=== PATIENT | female | born 1935 | race Caucasian/White ===

== ENCOUNTER 2018-11-18 14:17 | Emergency (ER) | payer OTHER ==
[~2018-11-18] VITALS: Ht 167.6 cm; Wt 50.8 kg
[2018-11-18 16:20] VITALS: BP 145/71
== END 2018-11-18 16:20 | disposition home or self-care (01) ==
LOC: ER 14:17
DX: R04.0 Epistaxis (principal)

== ENCOUNTER 2018-12-30 16:55 | Emergency (ER) | payer OTHER ==
[~2018-12-30] VITALS: Ht 162.6 cm; Wt 65.8 kg
[2018-12-30 16:57] VITALS: BP 154/75
== END 2018-12-30 17:35 | disposition home or self-care (01) ==
LOC: ER 16:55
DX: R04.0 Epistaxis (principal); I10 Essential (primary) hypertension; E11.9 Type 2 diabetes mellitus without complications; E78.5 Hyperlipidemia, unspecified; F03.90 Unspecified dementia, unspecified severity, without behavioral disturbance, psychotic disturbance, mood disturbance, and anxiety; Z95.1 Presence of aortocoronary bypass graft; Z86.2 Personal history of diseases of the blood and blood-forming organs and certain disorders involving the immune mechanism

== ENCOUNTER 2019-02-10 15:03 | Emergency (ER) | payer OTHER ==
[~2019-02-10] VITALS: Ht 162.6 cm; Wt 64.0 kg
[2019-02-10 15:14] VITALS: BP 141/60
[2019-02-10] MEDS ORDERED: SIMVASTATIN40 MG PO (15:16)
[2019-02-10] MEDS ORDERED: ARICEPT10 MG PO (15:17)
[2019-02-10] MEDS ORDERED: GABAPENTIN 100100 MG PO (15:17)
[2019-02-10] MEDS ORDERED: NATEGLINIDE120 MG PO (15:17)
[2019-02-10] MEDS ORDERED: LISINOPRIL40 MG PO (15:17)
[2019-02-10] MEDS ORDERED: METFORMIN HCL1000 MG PO (15:18)
== END 2019-02-10 16:06 | disposition home or self-care (01) ==
LOC: ER 15:03
DX: H11.31 Conjunctival hemorrhage, right eye (principal); I10 Essential (primary) hypertension; E11.9 Type 2 diabetes mellitus without complications; F03.90 Unspecified dementia, unspecified severity, without behavioral disturbance, psychotic disturbance, mood disturbance, and anxiety; E78.5 Hyperlipidemia, unspecified; Z95.1 Presence of aortocoronary bypass graft; Z86.2 Personal history of diseases of the blood and blood-forming organs and certain disorders involving the immune mechanism

== ENCOUNTER 2020-07-15 08:57 | Inpatient (IN) | payer OTHER ==
[~2020-07-15] VITALS: Ht 160 cm; Wt 67.8 kg
[2020-07-15] VITALS (7 sets, daily range): BP systolic 97–180; BP diastolic 49–159
[~2020-07-15 08:57] MED LIST: ARICEPT10 MG PO; GABAPENTIN 100100 MG PO; LISINOPRIL40 MG PO; METFORMIN HCL1000 MG PO; NATEGLINIDE120 MG PO; SIMVASTATIN40 MG PO
[2020-07-15 10:17] LABS: ABSOLUTE NEUTROPHILS 13.6 thou/uL (1.4-8.2); BASOPHILS 0.2 % (0.0-2.0); EOSINOPHILS 0.9 % (0.0-3.0); HEMATOCRIT 35.3 % (37.0-47.0); HEMOGLOBIN 12.2 gm/dL (12.0-15.0); LYMPHOCYTES 3.4 % (24.0-44.0); MCHC 34.5 g/dL (28.0-37.0); MCV 89.7 fL (80.0-100.0); MONOCYTES 7.5 % (1.0-8.0); PLATELET COUNT 360 thou/uL (150-400); RBC 3.93 mil/uL (4.20-5.00); RDW 14.6 % (10.5-14.5); WBC 15.5 thou/uL (4.0-11.0)
[2020-07-15 10:28] LABS: ANION GAP 10 mmol/L (7-16); BUN 55 mg/dL (7-18); CALCIUM 9.5 mg/dL (8.5-10.1); CHLORIDE 98 mmol/L (98-107); CO2 25 mmol/L (21-32); CREATININE 3.4 mg/dL (0.6-1.0); GLUCOSE 95 mg/dL (74-106); POTASSIUM 4.3 mmol/L (3.5-5.1); SODIUM 133 mmol/L (136-145)
[2020-07-15 10:38] LABS: URINE BLOOD NEGATIVE (Negative); URINE CLARITY CLEAR; URINE COLOR YELLOW; URINE GLUCOSE-RANDOM* NEGATIVE (Negative); URINE KETONES TRACE (Negative); URINE LEUKOCYTES-REFLEX NEGATIVE (Negative); URINE NITRITE-REFLEX NEGATIVE (Negative); URINE PROTEIN (DIPSTICK) NEGATIVE (Negative); URINE SPECIFIC GRAVITY >= 1.030 (1.005-1.035); URINE UROBILINOGEN 0.2 E.U./dl (0.2-1.0)
[2020-07-15 10:38] LABS: ALBUMIN 3.5 g/dL (3.4-5.0); DIRECT BILIRUBIN < 0.1 mg/dL (<0.1-0.2); SGOT 20 U/L (15-37); SGPT 14 U/L (14-59); TOTAL BILIRUBIN 0.4 mg/dL (0.2-1.0); TOTAL PROTEIN 7.3 g/dL (6.4-8.2); TROPONIN-I <0.06 ng/mL (<0.06)
--- NOTE | 2020-07-15 10:42 | NUR ---
ATTEMPTED TO CONTACT PATIENT RESPONSIBLE DEMOCRAT (DEBORAH KHLOE [phone]) TO NOTIFY THAT PATIENT IS CURRENTLY ADMITTED INTO THE ED, NO ANSWER, LEFT MESSAGE FOR CALL BACK.
[2020-07-15 10:51] LABS: ICTOTEST (BILI CONFIRMATORY) Negative (Negative); URINE BILIRUBIN NEGATIVE (Negative)
[2020-07-15] MEDS ORDERED: NEURONTIN100 MG PO (10:55)
[2020-07-15 16:08] LABS: FOLIC ACID 17.4 ng/mL (8.6-58.9)
--- NOTE | 2020-07-15 18:01 | NUR ---
RN ADMITTED THE PT AND DID THE ADMISSION TO THE BEST OF RN'S ABILITITES GIVEN THAT PT HAD ALTERED MENTAL STATUS. UPON ARRIVAL PT WAS ESCORTED BY ONE DIRECTOR OF SECURITIES AND REAL ESTATE ON A GURNEY AND PT WAS TRANSFERRED FROM [place] TO BED WITH TWO PEOPLE ASSIST. VS ARE STABLE. SAW THE PT PLAN OF CARE IS TO HYDRATE VIA IV FLUID AND ABX TREATMENT. PT WAS ORIENTED TO SELF AND TIME AND PLACE BUT DISOREINETED TO SITUATION WELL A POOR HISTORIAN. RN TALKED TO THE DAUGHTER ASSIGNED AMANDA THE AUTHORIZED CONTACT. TOLD HER THAT SHE WILL BE THE ONLY OUTLET FOR INFOMRATION FOR HIPAA REASONS AND SHE WILL BE TRANSMITTING THE INFORMATION. PT IS SLEEPING FOR MAJORITY OF THE SHIFT. PT WANTED TO GET UP BUT FELL ASLEEP. RN CHECKED THE PT AND SHE WAS CLEAN AND DRY. BOTTOM WAS RED BUT BLANCHABLE, Z GUARD WAS PLACED. CUONG KRAMER RN HAD VERIFIED SKIN CHECK WITH THIS RN. RN SIGNING OFF
--- NOTE | 2020-07-15 22:48 | NUR ---
PT INITIALLY RESTLESS IN BED, WANTING TO LEAVE HER ROOM. ONCE PT WAS REORIENTED TO THE TIME OF NIGHT, PT RETURNED TO RESTING. IVF INTACT. PT TO WEAK TO STAND FOR BSC EVEN WITH TWO STAFF, USED BED ROSARIO. PT IS INCONTINENT OF URINE WELL. PALE SKIN TONE, LUNGS WITH WHEEZES. PTS DAUGHTER GIVEN UPDATE. 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 BED ALARM ON.
--- NOTE | 2020-07-16 01:29 | NUR ---
PT DENIES BEING INCONTINENT, BUT HAS BEEN 3 TIMES. PT DENIES BEING [place], BUT CONTINUES TO ASK STAFF TO REPEAT THEMSELVES, AND THE YELLS LOUDLY I AM NOT [place] I CAN YELL. 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
[2020-07-16 04:17] VITALS: BP 126/66
[2020-07-16 05:23] LABS: ABSOLUTE NEUTROPHILS 8.1 thou/uL (1.4-8.2); BASOPHILS 0.3 % (0.0-2.0); HEMATOCRIT 30.2 % (37.0-47.0); LYMPHOCYTES 3.9 % (24.0-44.0); MCH 30.4 pg (26.0-34.0); MCHC 33.6 g/dL (28.0-37.0); MCV 90.6 fL (80.0-100.0); MONOCYTES 3.5 % (1.0-8.0); PLATELET COUNT 324 thou/uL (150-400); POLYS 92.3 % (36.0-66.0); RBC 3.33 mil/uL (4.20-5.00); WBC 8.8 thou/uL (4.0-11.0)
[2020-07-16 05:30] LABS: CALCIUM 8.6 mg/dL (8.5-10.1); MAGNESIUM 1.6 mg/dL (1.8-2.4); POTASSIUM 4.9 mmol/L (3.5-5.1)
[2020-07-16 05:32] LABS: HEMOGLOBIN 10.1 gm/dL (12.0-15.0)
[2020-07-16 05:57] LABS: CREATININE 1.9 mg/dL (0.6-1.0)
[2020-07-16 07:07] VITALS: BP 126/63
[2020-07-16 09:35] VITALS: BP 131/67
--- NOTE | 2020-07-16 09:39 | NUR ---
assessment completed. report given to adrian olmedo. pt belongings packed and sent down with pt to room 455
--- NOTE | 2020-07-16 15:01 | NUR ---
ASSUMED PT CARE UPON TRANSFER TO 4W THIS AM. PT VSS, A&OX1, WITH CONFUSION. PT HAS NO COMPLAINTS OF PAIN. CALLS APPROPRIATELY WHEN NEEDED. PATIENT CAN BE CONTINENT WITH INCONTINENT SPURTS. FALL PRECAUTIONS IN PLACE. HAS A CONGESTED COUGH. SKIN TEAR ON LEFT FOREARM, PICTURE TAKEN AND DRESSING PUT ON. IV PATENT, FLUIDS INFUSING. HYDRATION ENCOURAGED.
--- NOTE | 2020-07-16 15:27 | NUR ---
PT ADMITTED RELATED TO PNEUMONIA, DEHYDRATION, AND FALLS. CM REVIEWED CHART AND SPOKE WITH CARE TEAM. CM MET WITH PT AND DTR BONNIE CHAGO AT BEDSIDE THIS DAY. PT WAS ALERT TO SELF. PT AND DTR INDICATED THAT PT RESIDES IN ASSISTED LIVING AT [facility]. 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 THEY INDICATED THAT PT HAD BEEN REVIEVING PT, OT, AND ST AT FACILITY DISP[employer] BUT COULDN'T RECALL PROVIDER. PT'S DTR AMANDA WORKS AT [facility] IN TRANSPORT. THEY HAVE INDICATED HOPE THAT PT COULD RETURN TO HER AL WITH RESUMPTION OF HH SERVICES BUT ARE OPEN TO SHORT TERM SKILLED STAY IF NEEDED. PT ON IVF AND IV STEROIDS. CM TO FOLLOW INDICATED WITH DC PLANNING.
[2020-07-16 15:45] VITALS: BP 124/70
[2020-07-16 15:49] VITALS: BP 157/64
[2020-07-16 19:39] VITALS: BP 150/70
--- NOTE | 2020-07-17 04:17 | NUR ---
VSS-AFEBRILE. CONFUSED AND IMPULSIVE OVERNIGHT, HIGH FALL RISK. ORIENTED TO SELF ONLY. DIFFICULT TO REORIENT, CAN BE AGGRESSIVE AT TIMES. OOB MTO BSC WITH ASSIST X 2 AND GAIT BELT. ALL FALL PRECAUTIONS IN PLACE. REMAINED CONTINENT THIS SHIFT.
[2020-07-17 05:37] LABS: HEMATOCRIT 32.9 % (37.0-47.0); HEMOGLOBIN 10.8 gm/dL (12.0-15.0); MCH 29.6 pg (26.0-34.0); MCHC 32.8 g/dL (28.0-37.0); MCV 90.5 fL (80.0-100.0); RBC 3.63 mil/uL (4.20-5.00); WBC 17.8 thou/uL (4.0-11.0)
[2020-07-17 06:10] LABS: CALCIUM 9.5 mg/dL (8.5-10.1); CREATININE 1.5 mg/dL (0.6-1.0); PHOSPHORUS 2.8 mg/dL (2.5-4.9)
[2020-07-17 06:15] LABS: POTASSIUM 5.1 mmol/L (3.5-5.1)
[2020-07-17 07:30] VITALS: BP 177/83
--- NOTE | 2020-07-17 15:57 | NUR ---
PT CONTINUES ON IV ABX AND IV STEROIDS. CM FOLLOWING REGARDING DC PLANNING. EITHER BACK TO [facility] WITH HH OR SNF AT [facility].
[2020-07-17 16:00] VITALS: BP 155/70
--- NOTE | 2020-07-17 17:05 | NUR ---
ASSUMED PATIENT AFTER REPORT. ASSESSMENT CHARTED. MEDS ADMINSTERED PER EMAR. VSS. PATIENT IS ALERT TO SELF BUT VERY CONFUSED AND DISORIENTED BUT NOT COMBATIVE. DTR AT BEDSIDE. PROVIDER CONTACTED FOR QUESTIONS; GABAPENTIN WAS RESUMED FOR BETTER REST TONIGHT. NEW IV INSERTED BY VAT ON R HAND. PROTECTIVE WRAP PLACED; NO SIGNS OF DISCOMFORT FROM PATIENT. APPETITE IS POOR; PATIENT REQUIRES ENCOURAGEMENT AND CUING. PATIENT ABLE TO TURN SELF BUT HAS BEEN GETTING UP TO BSC WITH X1 ASSIST. STILL ON IV ABX. PATIENT DENIES PAIN AND VOICES NO FURTHER NEEDS. FALL PRECAUTIONS IN PLACE. 4 BEDRAILS UP PER FAMILY REQUEST. WILL CONTINUE TO MONITOR AND FOLLOW PLAN OF CARE.
[2020-07-17 20:06] VITALS: BP 154/88
[2020-07-17 20:36] VITALS: BP 140/72
--- NOTE | 2020-07-18 04:11 | NUR ---
Pt. rested quietly during the night when checked on during frequent rounds. She is very confused, but cooperative. Bed alarm is on.
[2020-07-18 05:34] LABS: HEMATOCRIT 31.5 % (37.0-47.0); HEMOGLOBIN 10.4 gm/dL (12.0-15.0); MCH 30.2 pg (26.0-34.0); MCHC 33.1 g/dL (28.0-37.0); MCV 91.2 fL (80.0-100.0); RBC 3.45 mil/uL (4.20-5.00); WBC 11.7 thou/uL (4.0-11.0)
[2020-07-18 05:42] LABS: CREATININE 1.3 mg/dL (0.6-1.0); MAGNESIUM 1.7 mg/dL (1.8-2.4)
[2020-07-18 05:55] LABS: POTASSIUM 3.9 mmol/L (3.5-5.1)
[2020-07-18 07:35] VITALS: BP 119/62
[2020-07-18 07:38] VITALS: BP 150/85
--- NOTE | 2020-07-18 16:07 | NUR ---
ASSUMED CARE OF PATIENT AT SHIFT CHANGE. ASSESSMENT CHARTED. MEDS ADMINISTERED PER EMAR. PATIENT IS ALERT TO SELF BUT REMAINS CONFUSED; EASIER TO ORIENT THIS DAY. PT WORKED W THIS PATIENT. PATIENT REMIANS X1 ASSIST. RECIEVED IV ABX THIS AM AND MAGNESIUM ORDERED. VOICED PAIN ON R POSTERIOR THIGH; TYLENOL ADMINISTERED. FAMILY REQUESTED FOR OR TUESDAY D/C. PATIENT SEEMS MUCH LESS ANXIOUS THIS SHIFT. SITTING IN CHAIR; GOOD APPETITE. DTR AT BEDSIDE. DENIES NO NEEDS AT THIS TIME. FALL PRECAUTIONS REMAIN IN PLACE. PATIENT CONTINUES TO MAKE PROGRESS AND IS BENEFITING FROM THERAPIES. WILL CONTINUE TO MONITOR AND FOLLOW PLAN OF CARE.
[2020-07-18 16:10] VITALS: BP 101/63
--- NOTE | 2020-07-18 16:13 | NUR ---
IT IS ANTICIPATED THAT PT WILL BE MEDICALLY STABLE TO DC TO [facility] TOMORROW Tuesday07/19/20. FAX ORDERS TO . CHART COPY WILL NEED TO MADE. CALL REPORT TO . CONTACT PT'S DTR AMANDA SHE WORKS FOR [email or web address] AT . ADMISSIONS CELL SHOULD THERE BE ANY ISSUSES .
[2020-07-18 19:46] VITALS: BP 132/56
--- NOTE | 2020-07-19 04:01 | NUR ---
Pt. rested quietly at intervals during the night when checked on during frequent rounds. She offers no c/o pain. Pt. is alert with confusion. Up to the bedside comode with assistance of one and gait belt. Bed alarm is on.
[2020-07-19 04:49] LABS: HEMATOCRIT 31.4 % (37.0-47.0); HEMOGLOBIN 10.3 gm/dL (12.0-15.0); MCH 29.6 pg (26.0-34.0); MCHC 32.8 g/dL (28.0-37.0); MCV 90.2 fL (80.0-100.0); RBC 3.48 mil/uL (4.20-5.00); RDW 15.1 % (10.5-14.5); WBC 12.4 thou/uL (4.0-11.0)
[2020-07-19 05:03] LABS: CREATININE 1.2 mg/dL (0.6-1.0); MAGNESIUM 1.8 mg/dL (1.8-2.4); POTASSIUM 4.1 mmol/L (3.5-5.1)
[2020-07-19 08:29] VITALS: BP 137/77
--- NOTE | 2020-07-19 11:18 | NUR ---
Received awake on bed. Due medications given as prescribed, able to swallow meds w/o difficulty. Alert to herself only, re-oriented from time to time. On MS, not on telemetry; no complains and signs of chest pain, crushing sensation and heaviness. On room air. On mechanically altered diet- tolerating well; assisted and encouraged in eating and drinking; no nausea, no vomiting and no abdominal pain noted. On blood sugar monitoring, taken and recorded accordingly; with sliding scale insulin ordered- given as prescribed. With SL at R hand; on IV antibiotics. With skin tear at L FA- dressing in place. With on and off incontinence, able to use bedside commode- with standby assist, gait belt and walker; Falls bundle in place. Checked frequently and changed as needed. No complains and signs of pain made during assessment. To continue monitoring patient.
[2020-07-19 16:53] VITALS: BP 123/66
[2020-07-19 20:12] VITALS: BP 135/865
--- NOTE | 2020-07-20 01:00 | NUR ---
ASSUMED CARE OF PT AT 1900. PT IS A/O X1 AND IS PLEASANT AND COOPERATIVE. C/O COUGH. LUNGS SOUND COARSE AND WHEEZY. FAIR COUGH EFFORT BUT IS ABLE TO EXPEL SPUDEM. VSS. FALL PRECAUTIONS ARE IN PLACE, CALL LIGHT IS WITHIN REACH.
[2020-07-20 03:23] VITALS: BP 133/66
[2020-07-20 08:05] VITALS: BP 137/77
[2020-07-20 10:25] LABS: CALCIUM 8.8 mg/dL (8.5-10.1); CREATININE 1.1 mg/dL (0.6-1.0); MAGNESIUM 1.7 mg/dL (1.8-2.4); POTASSIUM 3.9 mmol/L (3.5-5.1)
[2020-07-20 11:08] LABS: HEMATOCRIT 31.4 % (37.0-47.0); HEMOGLOBIN 10.4 gm/dL (12.0-15.0); MCH 29.8 pg (26.0-34.0); MCHC 33.1 g/dL (28.0-37.0); MCV 90.3 fL (80.0-100.0); RBC 3.48 mil/uL (4.20-5.00); RDW 15.2 % (10.5-14.5)
--- NOTE | 2020-07-20 16:57 | NUR ---
PT A&O TO SELF, VSS, DENIES PAIN. PATIENT HAS CONGESTED COUGH, LUNGS DIMINISHED. DAUGHTER AT BEDSIDE. PATIENT HAS SKIN TEAR TO RIGHT FA COVERED WITH OPTIFOAM. PATIENT NEEDS EXTRA TIME AND ASSISTANCE MOVING. NO SIGNS OF DISTRESS, WILL CONTINUE TO MONITOR.
[2020-07-20 19:45] VITALS: BP 147/70
--- NOTE | 2020-07-21 03:15 | NUR ---
PT IS A/O X1 AND IS PLEASANT AND COOPERATIVE. PT HAS PERSISTENT COUGH AND CONGESTION. IS NOT ABLE TO COUGH SPUDEM MUCH SHE WAS ABLE TO THE PREVIOUS NOC. CONTINUES ON ROOM AIR. AND GETS UP WITH ASSISTANCE TO THE BSC. VSS. AFEBRILE. FALL PRECAUTIONS ARE IN PLACE, CALL LIGHT IS WITHIN PLACE. WILL CONTINUE TO MONITOR.
[2020-07-21 05:11] LABS: HEMATOCRIT 29.7 % (37.0-47.0); HEMOGLOBIN 9.7 gm/dL (12.0-15.0); MCH 29.9 pg (26.0-34.0); MCHC 32.8 g/dL (28.0-37.0); MCV 91.1 fL (80.0-100.0); RBC 3.26 mil/uL (4.20-5.00); RDW 15.1 % (10.5-14.5); WBC 12.9 thou/uL (4.0-11.0)
[2020-07-21 05:25] LABS: CALCIUM 8.6 mg/dL (8.5-10.1); CREATININE 0.9 mg/dL (0.6-1.0); MAGNESIUM 1.5 mg/dL (1.8-2.4); POTASSIUM 3.9 mmol/L (3.5-5.1)
[2020-07-21 09:03] VITALS: BP 149/88
--- NOTE | 2020-07-21 12:17 | NUR ---
Received awake on bed. Due medications given as prescribed, able to swallow meds w/o difficulty. On room air, pt still with persistent cough- physician informed and aware. On MS, not on telemetry; no complains and signs of chest pain, crushing sensation and heaviness. Assisted in ADLs. On mechanically altered, carb controlled diet- tolerating well; no nausea, no vomiting and no abdominal pain noted; assisted and encouraged in eating and drinking. Continent of bowel and bladder, able to use bedside commode with gait belt, walker and moderate assist; falls bundle in place. With NS at 75cc/hr, infusing well at R hand- saline locked as ordered. With skin tear at L FA- dressing C/D/I. Able to sit out on the chair. On blood sugar monitoring, taken and recorded accordingly, with sliding scale insulin ordered. No complains of pain made during assessment. To continue monitoring patient.
--- NOTE | 2020-07-21 14:06 | NUR ---
CARE TEAM INDICATED PT PT IS PROGRESSING TOWARD GOAL OF DISHCARGE. CARE TEAM WANT FOR PT TO CONTINUE ON IV ABX FOR ANOTHER 24-48 HRS. CM UPDATED TERESA. CM TO FOLLOW INDICATED WITH DC PLANNING.
[2020-07-21 16:01] VITALS: BP 134/69
[2020-07-21 20:20] VITALS: BP 141/88
[2020-07-21 20:40] VITALS: BP 141/88
[2020-07-22 03:57] VITALS: BP 113/65
--- NOTE | 2020-07-22 05:42 | NUR ---
PATIENT IS A/0X1 AND HAS HX OF DEMENTIA. PATIENT HAS BEEN PLEASANTLY CONFUSED BUT COOPERATIVE. SHE HAS HAD REQUEST TO VOID BACK TO BACK TIMES. PATIENT VOIDS HALF THE TIMES SHE GETS UP. PATIENT DOES NOT HAVE DISCOMFORT IN ABDOMEN OR OVER BLADDER. BLADDER DOES NOT FEEL DISTENDED. PATIENT BLADDER SCANNED ONCE WHEN UNABLE TO VOID AND WAS AT 295 RESIDUAL. SHE TRIED AGAIN WITHIN HALF HOUR AND NOT ABLE TO VOID. RESCANNED AND WAS 351. CALLED HOSPITALIST JASMEET BEST NP. RECEIVED ORDER TO CATH PATIENT. HOWEVER PATIENT WAS THEN ABLE TO VOID ONCE SHE GOT BACK UP AND VOIDED CLEAR YELLOW URINE AT 350CC. NO BURNING. JUST FREQUENCY. PATIENT HAS DIFFICULT TIME RELAXING ENOUGH TO VOID. NURSE AND/OR NATURALIZATION EXAMINER SIT IN ROOM FOR 20-30 MINUTES AT A TIME. SOMETIMES OUT OF SITE TO LET PT HAVE PRIVACY BUT ABLE TO SEE PT. TRIED RUNNING WATER ALSO. PT SLEEPING AT THIS TIME. SHE IS UP WITH ASSIST X1 WITH GAIT BELT AND WALKER TO BS. DENIES PAIN. PT IS FALL RISK. PT HAS SALINE LOCK IN RFA FOR ANTIBIOTICS. LUNGS COARSE BILATERALLY. LOOSE CONGESTED COUGH NON PRODUCTIVE. ACCUCHECK WAS 212 AT HS AND LISPRO 4U SQ GIVEN.
[2020-07-22 07:53] VITALS: BP 132/83
--- NOTE | 2020-07-22 08:51 | NUR ---
Assess due to length of stay. Admit with pneumonia. Advanced age, hx dementia. Wts are stable per [facility] records. Eating 80-100% of meal sand 50-100% of Ensure supplement. ST following, needs [facility] altered diet. Low nutrition risk with appropriate nutrition interventions in place
[2020-07-22 19:27] VITALS: BP 131/65
--- NOTE | 2020-07-22 20:09 | NUR ---
PT A&O TO SELF, VSS, NO APPARENT PAIN. PATIENT 1 ASSIST TO BEDSIDE COMMODE. PATIENT HAS URGENCY. PATIENT HAS SMALL APPETITE EATING APPROX 20% OF MEALS. DAUGHTER AT BEDSIDE. NO SIGNS OF DISTRESS. WILL CONTINUE TO MONITOR.
--- NOTE | 2020-07-23 04:35 | NUR ---
ASSUMED CARE OF PT AT 1900HRS. PT IS ALERT BUT ONLY ORIENTED TO PERSON. FALL PRECAUTION IN PLACE PT CAN BE IMPULSIVE. PT MOVED FROM 455 TO 452 FOR CLOSER OBSERVATION. PT DENIED PAIN, NAUSEA OR SOA. ASSESSMENT CHARTED. POSSIBLE DC NEXT SHIFT. DAUGHTER IS ABLE TO PROVIDE RIDE TO [employer] [facility] [email or web address] IN THE AFTERNOON. PT WAS ABLE TO GET COMFORTABLE AND SLEEP PART OF THE SHIFT. VSS AND NO S/S OF ACUTE DISTRESS. WILL CONTINUE TO MONITOR.
[2020-07-23 07:21] VITALS: BP 127/59
[2020-07-23 10:14] LABS: HEMATOCRIT 31.3 % (37.0-47.0); MCH 29.5 pg (26.0-34.0); MCHC 32.1 g/dL (28.0-37.0); MCV 91.8 fL (80.0-100.0); RBC 3.4 mil/uL (4.20-5.00); RDW 15.1 % (10.5-14.5); WBC 11.7 thou/uL (4.0-11.0)
[2020-07-23 10:25] LABS: CALCIUM 8.7 mg/dL (8.5-10.1); CREATININE 1.1 mg/dL (0.6-1.0); MAGNESIUM 1.6 mg/dL (1.8-2.4); POTASSIUM 3.7 mmol/L (3.5-5.1)
[2020-07-23] MEDS ORDERED: MUCINEX600 MG PO (15:19)
[2020-07-23] MEDS ORDERED: VITAMIN D325 MC1 PO (15:20)
[2020-07-23] MEDS ORDERED: B-12500 MCG PO (15:21)
--- NOTE | 2020-07-23 15:44 | NUR ---
CARE TEAM INDICATED THAT PT IS MEDICALLY STABLE TO DC TO [facility] THIS DAY. CHART COPY ORDERED. ORDERS TO BE FAXED TO COMMUNITY. CM NOTIFIED PT AND HER DTR JAYRO ANDERS WHO WAS AT BEDSIDE. PT'S DTR AMANDA ALSO AWARE AND AGREEABLE. REPORT TO BE CALLED TO . TRANSPORT ARRANGED FOR 1600. NO OTHER CM INTERVENTION INDICATED CASE CLOSED.
--- NOTE | 2020-07-23 16:21 | NUR ---
Assumed pt care this am, vs stable alert and oriented x 1. Needs her food set up and is able to eat on her own. Times 1 assists sat most of the day on the recliner, daughter at the bed side. POC followed, report given to nurse at [facility]. No signs or verbalizations of distress noted. IV removed, pt is now dc.
--- NOTE | 2020-07-24 08:47 | NUR ---
Note Given: Y Facility List Provided:Y Facility Angela: None chosen at this time Sherry Contreras ELECTRONIC EQUIPMENT SET UP OPERATOR spoke with pt about BPCI program 07/18/20
== END 2020-07-23 16:26 | DRG 871 ==
LOC: ER 08:57 → 4W 12:24 → EROBS 12:24 → 3W 12:24 → 4W 07-16 09:28
PROVIDERS: Emergency Medicine; Hospitalist; Internal Medicine; Nurse Practitioner; ADMIT Hospitalist; ATTEND Hospitalist
DX: A41.9 Sepsis, unspecified organism (principal); J96.01 Acute respiratory failure with hypoxia; G92 Toxic encephalopathy; J18.9 Pneumonia, unspecified organism; N17.9 Acute kidney failure, unspecified; F03.90 Unspecified dementia, unspecified severity, without behavioral disturbance, psychotic disturbance, mood disturbance, and anxiety; E78.5 Hyperlipidemia, unspecified; E86.0 Dehydration; E11.42 Type 2 diabetes mellitus with diabetic polyneuropathy; E11.22 Type 2 diabetes mellitus with diabetic chronic kidney disease; N18.9 Chronic kidney disease, unspecified; I12.9 Hypertensive chronic kidney disease with stage 1 through stage 4 chronic kidney disease, or unspecified chronic kidney disease; I95.9 Hypotension, unspecified; Z20.822 Contact with and (suspected) exposure to COVID-19; Z95.1 Presence of aortocoronary bypass graft; Z79.899 Other long term (current) drug therapy; Z87.891 Personal history of nicotine dependence
CPT/HCPCS: 10040; 10080

== ENCOUNTER 2021-06-01 19:14 | Emergency (ER) | payer OTHER ==
[~2021-06-01] VITALS: Ht 167.6 cm; Wt 57.5 kg
--- NOTE | ~2021-06-01 | EMS ---
[address] [address] EMS Patient Care Report Name: SHERIDAN LEDBETTER Room #: REG SCOTT Ruiz#: [id number] Admission: 06/01/21 Attend Phys: Discharge: Date of : 34 Report #: [id number] THIS REPORT FOR: //name// Report Transmitted: 06/01/2021 18:34 EMS Care Summary [place], [place]/[facility] Incident [id number] @ 06/01/2021 18:45 Incident Location [address] Patient SHERIDAN LEDBETTER Female, 85 Years 1935 Patient Address [address] [place] [address] Patient History Dementia,Type 2 Diabetes, Patient Allergies Codeine, Patient Medications Gabapentin, Lisinopril, Simvastatin, Chief Complaint nausea Disposition Transported No Lights/[place] Dispatch Reason Unconscious/Fainting Transported To [facility] Narrative Arrived to find pt sitting on couch in living room of Independent Living with staff. Staff state they found pt on carpet, unresponsive. Staff stated they were with her less than 20 min before they found her. Staff state they gave her [address] [address] EMS Patient Care Report Name: SHERIDAN LEDBETTER Room #: EUN Ruiz#: [id number] Admission: 06/01/21 Attend Phys: Discharge: Date of : 34 Report #: [id number] a sternal rub to wake her up. Pt states she was awake the entire time. Unknown if pt hit head. Pt states she did not fall and has no pain, just nausea with one episode of vomiting earlier in the day. Pt is not on blood thinners. Pt has small cut to left ear. Pt stands and sits on cot where she is secured with cot straps. Pt placed in back of unit and placed in surgical mask. Pt transported without incident. Care to RN, rm 9. Initial Vitals @19:05P: 88,CO: 1,SpO2: 97, @19:04P: 83,R: 16,BP: 117/71,Pain: 0/10,GCS: 15,Glucose: 275,CO: 5,SpO2: 99,Revised Trauma: 12, @19:02P: 86,BP: 120/73, Assessments @18:56MENTAL:Person Oriented,Time Oriented,Place Oriented,SKIN:HEENT:Head/Face: No Abnormalities,Neck/Airway: No Abnormalities,LUNG SOUNDS:General: Nausea,Left Upper: No Abnormalities,Right Upper: No Abnormalities,Left Lower: No Abnormalities,Right Lower: No Abnormalities,ABDOMEN:General: Nausea,Left Upper: No Abnormalities,Right Upper: No Abnormalities,Left Lower: No Abnormalities,Right Lower: No Abnormalities,PELVIS//GI:No Abnormalities,EXTREMITIES:Left Arm: No Abnormalities,Right Arm: No Abnormalities,Left Leg: No Abnormalities,Right Leg: No Abnormalities,PULSE:NEURO: Impression Syncope / Fainting Procedures @19:09 IV Therapy - Saline Lock 10cc (20 ga) Site: Antecubital-Left Response: UnchangedSucceeded @18:56 ALS Assessment Response: UnchangedSucceeded @19:03 3-Lead ECG Response: UnchangedSucceeded Timeline 18:36,Call Received 18:36,Dispatch Notified 18:45,Dispatched 18:45,En Route 18:50,On Scene 18:55,At Patient 18:56,ALS Assessment,Response: UnchangedSucceeded, 19:02,BP: 120/73 M,PULSE: 86,RR: R,SPO2: Ox,ETCO2: ,BG: ,PAIN: ,GCS: , 19:03,3-Lead ECG,Response: UnchangedSucceeded, 19:04,BP: 117/71 M,PULSE: 83,RR: 16 R,SPO2: 99 Ox,ETCO2: ,B,PAIN: 0,GCS: 15, [facility] [address] [place] [address] EMS Patient Care Report Name: SHERIDAN LEDBETTER Room #: REG Lynette.#: [id number] Admission: 06/01/21 Attend Phys: Discharge: Date of : 34 Report #: [id number] 19:05,BP: / M,PULSE: 88,RR: R,SPO2: 97 Ox,ETCO2: ,BG: ,PAIN: ,GCS: , 19:06,Depart Scene 19:09,IV Therapy - Saline Lock 10cc 20 ga Site: Antecubital-Left,Response: UnchangedSucceeded, 19:11,At Destination 19:21,Call Closed Disclaimer v1.1 Copyright 2020 [employer] This EMS Care Summary contains data elements from the applicable legal record (which may be displayed differently). It is designed to provide pertinent information for the following purposes: continuity of care, clinical quality, and state data reporting. The complete legal record is available to ED staff and administrators of the receiving hospital in [employer]'s Patient Tracker. All data is provided "as is."
--- NOTE | ~2021-06-01 | EMS ---
[address] [address] EMS Patient Care Report Name: SHERIDAN LEDBETTER Room #: DEP SCOTT Ruiz#: [id number] Admission: 06/01/21 Attend Phys: Discharge: 06/01/21 Date of : 34 Report #: [id number] THIS REPORT FOR: //name// Report Transmitted: 06/04/2021 12:57 EMS Care Summary [place], [place]/[facility] Incident [id number] @ 06/01/2021 18:45 Incident Location [address] Patient SHERIDAN LEDBETTER Female, 85 Years 1935 Patient Address [address] [place] [address] Patient History Dementia,Type 2 Diabetes, Patient Allergies Codeine, Patient Medications Gabapentin, Lisinopril, Simvastatin, Chief Complaint nausea Disposition Transported No Lights/[place] Dispatch Reason Unconscious/Fainting Transported To [facility] Narrative Arrived to find pt sitting on couch in living room of Independent Living with staff. Staff state they found pt on carpet, unresponsive. Staff stated they were with her less than 20 min before they found her. Staff state they gave her [address] [address] EMS Patient Care Report Name: SHERIDAN LEDBETTER Room #: DEP Sara#: [id number] Admission: 06/01/21 Attend Phys: Discharge: 06/01/21 Date of : 34 Report #: [id number] a sternal rub to wake her up. Pt states she was awake the entire time. Unknown if pt hit head. Pt states she did not fall and has no pain, just nausea with one episode of vomiting earlier in the day. Pt is not on blood thinners. Pt has small cut to left ear. Pt stands and sits on cot where she is secured with cot straps. Pt placed in back of unit and placed in surgical mask. Pt transported without incident. Care to RN, rm 9. Initial Vitals @19:05P: 88,CO: 1,SpO2: 97, @19:04P: 83,R: 16,BP: 117/71,Pain: 0/10,GCS: 15,Glucose: 275,CO: 5,SpO2: 99,Revised Trauma: 12, @19:02P: 86,BP: 120/73, Assessments @18:56MENTAL:Place Oriented,Time Oriented,Person Oriented,SKIN:HEENT:Head/Face: No Abnormalities,Neck/Airway: No Abnormalities,LUNG SOUNDS:General: Nausea,Left Upper: No Abnormalities,Right Upper: No Abnormalities,Left Lower: No Abnormalities,Right Lower: No Abnormalities,ABDOMEN:General: Nausea,Left Upper: No Abnormalities,Right Upper: No Abnormalities,Left Lower: No Abnormalities,Right Lower: No Abnormalities,PELVIS//GI:No Abnormalities,EXTREMITIES:Left Arm: No Abnormalities,Right Arm: No Abnormalities,Left Leg: No Abnormalities,Right Leg: No Abnormalities,PULSE:NEURO: Impression Syncope / Fainting Procedures @19:09 IV Therapy - Saline Lock 10cc (20 ga) Site: Antecubital-Left Response: UnchangedSucceeded @18:56 ALS Assessment Response: UnchangedSucceeded @19:03 3-Lead ECG Response: UnchangedSucceeded Timeline 18:36,Call Received 18:36,Dispatch Notified 18:45,Dispatched 18:45,En Route 18:50,On Scene 18:55,At Patient 18:56,ALS Assessment,Response: UnchangedSucceeded, 19:02,BP: 120/73 M,PULSE: 86,RR: R,SPO2: Ox,ETCO2: ,BG: ,PAIN: ,GCS: , 19:03,3-Lead ECG,Response: UnchangedSucceeded, 19:04,BP: 117/71 M,PULSE: 83,RR: 16 R,SPO2: 99 Ox,ETCO2: ,B,PAIN: 0,GCS: 15, [address] [address] EMS Patient Care Report Name: SHERIDAN LEDBETTER Room #: DEP Sara#: [id number] Admission: 06/01/21 Attend Phys: Discharge: 06/01/21 Date of : 34 Report #: [id number] 19:05,BP: / M,PULSE: 88,RR: R,SPO2: 97 Ox,ETCO2: ,BG: ,PAIN: ,GCS: , 19:06,Depart Scene 19:09,IV Therapy - Saline Lock 10cc 20 ga Site: Antecubital-Left,Response: UnchangedSucceeded, 19:11,At Destination 19:21,Call Closed Disclaimer v1.1 Copyright 2020 [employer] This EMS Care Summary contains data elements from the applicable legal record (which may be displayed differently). It is designed to provide pertinent information for the following purposes: continuity of care, clinical quality, and state data reporting. The complete legal record is available to ED staff and administrators of the receiving hospital in [employer]'s Patient Tracker. All data is provided "as is."
[~2021-06-01 19:14] MED LIST changes: +B-12500 MCG PO; +MUCINEX600 MG PO; +NEURONTIN100 MG PO; +VITAMIN D325 MC1 PO
[2021-06-01 20:47] LABS: URINE BILIRUBIN NEGATIVE (Negative); URINE BLOOD NEGATIVE (Negative); URINE CLARITY CLEAR; URINE COLOR YELLOW; URINE GLUCOSE-RANDOM* NEGATIVE (Negative); URINE KETONES TRACE (Negative); URINE LEUKOCYTES-REFLEX NEGATIVE (Negative); URINE NITRITE-REFLEX NEGATIVE (Negative); URINE PROTEIN (DIPSTICK) NEGATIVE (Negative); URINE SPECIFIC GRAVITY >= 1.030 (1.005-1.035); URINE UROBILINOGEN 0.2 E.U./dl (0.2-1.0)
[2021-06-01 21:03] LABS: HEMATOCRIT 37.6 % (37.0-47.0); HEMOGLOBIN 12.4 gm/dL (12.0-15.0); MCH 30.3 pg (26.0-34.0); MCV 91.6 fL (80.0-100.0); RBC 4.11 mil/uL (4.20-5.00); RDW 13.9 % (10.5-14.5); WBC 11.5 thou/uL (4.0-11.0)
[2021-06-01 21:10] LABS: ANION GAP 12 mmol/L (7-16); BUN 35 mg/dL (7-18); CALCIUM 9.3 mg/dL (8.5-10.1); CHLORIDE 102 mmol/L (98-107); CO2 22 mmol/L (21-32); CREATININE 1.5 mg/dL (0.6-1.0); GLUCOSE 244 mg/dL (74-106); POTASSIUM 4.3 mmol/L (3.5-5.1); SODIUM 136 mmol/L (136-145)
[2021-06-01 21:18] LABS: ALBUMIN 3.5 g/dL (3.4-5.0); MAGNESIUM 1.5 mg/dL (1.8-2.4); PHOSPHORUS 4.6 mg/dL (2.6-4.7); SALICYLATE < 2.8 mg/dL (2.8-20.0); SGOT 28 U/L (15-37); SGPT 11 U/L (14-59); TOTAL BILIRUBIN 0.4 mg/dL (0.2-1.0)
[2021-06-01 22:38] VITALS: BP 126/54
--- NOTE | 2021-06-02 07:19 | EKG ---
[place] [address] [facility] [place] [address] ELECTROCARDIOGRAM REPORT Name: SHERIDAN LEDBETTER Room #: DEP Sara#: [id number] Admission: 06/01/21 Attend Phys: Discharge: 06/01/21 Date of : 34 Report #: [id number] [facility] ED Test Date: 2021-06-01 Test Time: 19:29:50 Pat Name: SHERIDAN LEDBETTER Department: Room: Gender: F Dye House Helper: NANDO : 1935 Requested By: Juma Archer Order Number: [id number] MD: Maged Veliz Measurements Intervals [place] Rate: 88 P: 67 DC: 190 QRS: -27 QRSD: 78 T: 52 QT: 375 QTc: 454 Interpretive Statements Sinus rhythm Inferior infarct, old Compared to ECG 06/01/2021 19:19:19 Ventricular premature complex(es) no longer present Myocardial infarct finding still present Electronically Signed On 06-02-2021 7:18:56 EXTERNAL RELATIONS MANAGER by Maged Veliz [email or web address] <ELECTRONICALLY SIGNED> By: Maged Veliz MD, [facility] 06/02/21717 28 28 Maged Veliz MD, FACC /EPI
--- NOTE | 2021-06-02 07:19 | EKG ---
[facility] [place] [address] ELECTROCARDIOGRAM REPORT Name: SHERIDAN LEDBETTER Room #: DEP Sara#: [id number] Admission: 06/01/21 Attend Phys: Discharge: 06/01/21 Date of : 34 Report #: [id number] [facility] ED Test Date: 2021-06-01 Test Time: 19:19:19 Pat Name: SHERIDAN LEDBETTER Department: Room: Gender: F Fiction And Nonfiction Prose Writer: NANDO : 1935 Requested By: Juma Archer Order Number: [id number] MD: Maged Veliz Measurements Intervals [place] Rate: 84 P: 52 NC: 175 QRS: -40 QRSD: 77 T: 21 QT: 351 QTc: 415 Interpretive Statements Sinus rhythm Ventricular premature complex Probable left atrial enlargement Inferior infarct, old Lateral leads are also involved Baseline wander in lead(s) II,III,aVR,aVF,V1,V2,V3,V5 No previous ECG available for comparison Electronically Signed On 06-02-2021 7:18:51 RN ENDOCRINOLOGY by Maged Veliz [email or web address] <ELECTRONICALLY SIGNED> By: Maged Veliz MD, [facility] 06/02/21717 18 18 Maged Veliz MD, FAC /EPI
== END 2021-06-01 22:30 | disposition home or self-care (01) ==
LOC: ER 19:14
PROVIDERS: Emergency Medicine
DX: S01.312A Laceration without foreign body of left ear, initial encounter (principal); F32.9 Major depressive disorder, single episode, unspecified; I10 Essential (primary) hypertension; E11.9 Type 2 diabetes mellitus without complications; E78.5 Hyperlipidemia, unspecified; Z90.89 Acquired absence of other organs; Z79.899 Other long term (current) drug therapy; W19.XXXA Unspecified fall, initial encounter; Y93.89 Activity, other specified; Y92.89 Other specified places as the place of occurrence of the external cause; Y99.8 Other external cause status

== ENCOUNTER 2021-07-22 22:41 | Inpatient (IN) | payer OTHER ==
[~2021-07-22] VITALS: Ht 157.5 cm; Wt 57.6 kg
--- NOTE | ~2021-07-22 | EMS ---
[address] [address] EMS Patient Care Report Name: SHERIDAN LEDBETTER Room #: 437-P ADM IN M.R.#: [id number] Admission: 07/23/21 Attend Phys: Keyshawn Brizuela MD Discharge: Date of : 34 Report #: [id number] THIS REPORT FOR: //name// Report Transmitted: 07/23/2021 09:34 EMS Care Summary [place], [place]/[facility] Incident [id number] @ 07/22/2021 22:11 Incident Location [address]-A Patient SHERIDAN LEDBETTER Female, 85 Years 1935 Patient Address [address] [place] [id number] Patient History Dementia,Type 2 Diabetes, Patient Allergies Codeine, Patient Medications Lisinopril, Gabapentin, Simvastatin, Chief Complaint R hip pain Disposition Transported No Lights/[place] Dispatch Reason Falls Transported To [facility] Narrative pt reported to have fallen out of bed and c/o R hip pain. she denies any other pain. no trauma to head. pt req transport to [facility]. she is log rolled to blanket and placed on cot in POC. transport w/o change. report to staff on [facility] [address] [place] [address] EMS Patient Care Report Name: SHERIDAN LEDBETTER Room #: 437-P ADM IN MPriti#: [id number] Admission: 07/23/21 Attend Phys: Keyshawn Brizuela MD Discharge: Date of : 34 Report #: [id number] arrival. Initial Vitals @22:32P: 97,R: 22,BP: 150/82,Pain: 7/10,GCS: 15,SpO2: 96,Revised Trauma: 12, Assessments @22:21MENTAL:No Abnormalities,SKIN:No Abnormalities,HEENT:Head/Face: No Abnormalities,LUNG SOUNDS:ABDOMEN:PELVIS//GI:EXTREMITIES:Right Leg: Other,PULSE:NEURO:Other, Impression Injury of Hip Procedures @22:21 ALS Assessment Response: Unchanged @22:25 Stretcher Response: Unchanged @22:32 IV Therapy - Saline Lock 10cc (20 ga) Site: Hand-Right Response: UnchangedSucceeded Timeline 22:01,Call Received 22:01,Dispatch Notified 22:11,Dispatched 22:11,En Route 22:17,On Scene 22:21,At Patient 22:21,ALS Assessment,Response: Unchanged 22:25,Stretcher,Response: Unchanged 22:32,BP: 150/82 M,PULSE: 97,RR: 22 R,SPO2: 96 Ox,ETCO2: ,BG: ,PAIN: 7,GCS: 15, 22:32,IV Therapy - Saline Lock 10cc 20 ga Site: Hand-Right,Response: UnchangedSucceeded, 22:34,Depart Scene 22:39,At Destination 22:48,Call Closed Disclaimer v1.1 Copyright 2021 [employer] This EMS Care Summary contains data elements from the applicable legal record (which may be displayed differently). It is designed to provide pertinent information for the following purposes: continuity of care, clinical quality, and state data reporting. The complete legal record is available to ED staff and administrators of the receiving hospital in ES's Patient Tracker. All data is provided "as is."
[2021-07-22 22:46] VITALS: BP 143/77
[2021-07-23] MEDS ORDERED: NAPROSYN500 MG PO (01:17)
[2021-07-23 02:13] LABS: ABSOLUTE NEUTROPHILS 17.8 thou/uL (1.4-8.2); BASOPHILS 0.4 % (0.0-2.0); HEMATOCRIT 35.1 % (37.0-47.0); HEMOGLOBIN 11.5 gm/dL (12.0-15.0); LYMPHOCYTES 4.6 % (24.0-44.0); MCH 29.9 pg (26.0-34.0); MCHC 32.9 g/dL (28.0-37.0); MCV 91.1 fL (80.0-100.0); MONOCYTES 4.5 % (1.0-8.0); PLATELET COUNT 310 thou/uL (150-400); POLYS 90.5 % (36.0-66.0); RBC 3.85 mil/uL (4.20-5.00); RDW 14.7 % (10.5-14.5); WBC 19.7 thou/uL (4.0-11.0)
[2021-07-23 02:22] LABS: CALCIUM 9.7 mg/dL (8.5-10.1); CREATININE 1.2 mg/dL (0.6-1.0); POTASSIUM 4.4 mmol/L (3.5-5.1)
[2021-07-23 04:59] VITALS: BP 110/60
[2021-07-23 05:52] LABS: URINE BILIRUBIN NEGATIVE (Negative); URINE BLOOD NEGATIVE (Negative); URINE CLARITY SL CLOUDY; URINE COLOR YELLOW; URINE GLUCOSE-RANDOM* NEGATIVE (Negative); URINE KETONES 1+ (Negative); URINE LEUKOCYTES-REFLEX 1+ (Negative); URINE NITRITE-REFLEX NEGATIVE (Negative); URINE PROTEIN (DIPSTICK) TRACE (Negative); URINE SPECIFIC GRAVITY >= 1.030 (1.005-1.035); URINE UROBILINOGEN 0.2 E.U./dl (0.2-1.0)
[2021-07-23 06:08] LABS: SQUAMOUS 0-3 Few /LPF (0-3); WBC CLUMPS Few (None Seen)
[2021-07-23 06:09] LABS: CELLULAR CASTS 0-3 Few /LPF (None Seen); CRYSTALS None Seen /LPF (None Seen); HYALINE CASTS 0-3 Few /LPF (None Seen); MUCUS 4-6 Moderate strn/LPF (None Seen)
[2021-07-23 06:39] VITALS: BP 139/70
[2021-07-23 07:00] VITALS: BP 106/49
--- NOTE | 2021-07-23 08:38 | NUR ---
ASSUMED PT CARE FROM ED AT 0700. PT IS ALERT & ORIENTED X2,3. PT HAS IV SITES ON LFA AND R HAND RUNNING NS @75ML/HR. PT IS NPO TODAY AND PROBABLY SURGERY TODAY PER NIGHT NURSE. PT HAS LORA CATH IN PLACE. PT IS ACCUCHECK ACHS. CALLED AND INFORMED PT FAMILY THAT PT IS CURRENTLY HERE. FINISHED ADMISSION. WILL FOLLOW POC.
[2021-07-23] MEDS ORDERED: LISINOPRIL20 MG PO (08:51)
[2021-07-23] MEDS ORDERED: VITAMIN D350 MC3 PO (08:56)
[2021-07-23 08:59] LABS: HEMATOCRIT 32.8 % (37.0-47.0); HEMOGLOBIN 10.7 gm/dL (12.0-15.0); MCH 29.7 pg (26.0-34.0); MCHC 32.7 g/dL (28.0-37.0); MCV 90.8 fL (80.0-100.0); RBC 3.61 mil/uL (4.20-5.00); RDW 14.5 % (10.5-14.5); WBC 13.8 thou/uL (4.0-11.0)
[2021-07-23 09:10] LABS: CALCIUM 9.4 mg/dL (8.5-10.1); CREATININE 1.2 mg/dL (0.6-1.0); POTASSIUM 4.6 mmol/L (3.5-5.1)
--- NOTE | 2021-07-23 12:01 | NUR ---
Met with patient and dtr at bedside. Patient resides at [facility]. Patient sustained hip fracture post fall. Patient with some dementia. Patient to have sx today. She has hx of skilled at [facility]. Dtr reports that may be an option but interested in all options. She has medicare skilled list to review. Discussed acute rehab and criteria. Updated [facility].
[2021-07-23 16:48] VITALS: BP 148/75
[2021-07-23 19:49] VITALS: BP 115/65
[2021-07-23 20:15] LABS: HEMATOCRIT 29.8 % (37.0-47.0); HEMOGLOBIN 9.8 gm/dL (12.0-15.0); MCH 29.8 pg (26.0-34.0); MCHC 32.8 g/dL (28.0-37.0); RBC 3.27 mil/uL (4.20-5.00); RDW 14.4 % (10.5-14.5); WBC 16.2 thou/uL (4.0-11.0)
[2021-07-24 03:38] LABS: HEMATOCRIT 26.8 % (37.0-47.0); HEMOGLOBIN 8.8 gm/dL (12.0-15.0); MCHC 32.8 g/dL (28.0-37.0); MCV 91.5 fL (80.0-100.0); RBC 2.93 mil/uL (4.20-5.00); RDW 14.4 % (10.5-14.5); WBC 12.8 thou/uL (4.0-11.0)
[2021-07-24 03:52] LABS: CALCIUM 8.6 mg/dL (8.5-10.1); POTASSIUM 5.1 mmol/L (3.5-5.1)
--- NOTE | 2021-07-24 07:45 | NUR ---
RECEIVED CARE OF THIS PATIENT AT 1900. PATIENT ALERT AND ORIENTED X3; PERSON, PLACE AND SITUATION. IS CONFUSED TO TIME. REMAIS ON BEDREST D/T SURGERY ON HER R HIP. HAS 2 AQUACEL DRESSINGS ON HIP. DENIES PAIN. BLOOD SUGAR WAS 185, RECEIVED 3 UNITS LISPRO INSULIN. LORA PATENT. HAS TWO IV'S. ONE IN HER R HAND AND THE OTHER IN HER LFA. DENIES PAIN. SLEPT MOST OF NIGHT.
[2021-07-24 07:55] VITALS: BP 125/43
--- NOTE | 2021-07-24 14:02 | NUR ---
met with dtr at bedside. Discussed post acute care list. Updated [facility]. Discussed [facility] eval which is their first choice. Dtr reports with skilled list likely [facility] but wants to discuss with sister.
[2021-07-24 15:46] VITALS: BP 124/58
--- NOTE | 2021-07-24 16:33 | NUR ---
PATIENT SEEN BY DR. CHUA FOR CONSULT. SKILLED FACILITY WAS THE RECOMMNEDATION DUE TO NEEDED 24/7 SUPPORT AT D/C. STAINING MACHINE OPERATOR INFORMED AND HYDROGEN BRAZE FURNACE OPERATOR SPOKE WITH DAUGHTER AND INFORMED HER THAT SNF WAS A BETTER OPTION FOR PATIENT PER REHAB DOCTOR.
--- NOTE | 2021-07-24 17:11 | NUR ---
Pt help patient sat up in the chair. patient is Alert, awake, and orient to person, confused and forgetful. Family at bedside, no pain this morning, dressing is intact, call light within reach, will continous monitoring.
[2021-07-24 19:26] VITALS: BP 116/54
--- NOTE | 2021-07-25 04:54 | NUR ---
RECEIVED CARE OF THIS PATIENT AT 1900. PATIENT ALERT AND ORIENTED TO SELF ONLY. STATES REMEMBERS IF YOU TELL HER. HAS LORA PATENT WITH YELLOW URINE WITH SEDIMENT. ACCUCHECK WAS 208, RECEIVED 4UNITS LISPRO INSULIN. DRESSINGS ON R HIP D/I. DENIES PAIN. SLEPT MOST OF NIGHT.
[2021-07-25 05:35] LABS: HEMATOCRIT 21.9 % (37.0-47.0); HEMOGLOBIN 7.4 gm/dL (12.0-15.0); MCH 30.7 pg (26.0-34.0); MCHC 33.9 g/dL (28.0-37.0); MCV 90.6 fL (80.0-100.0); RBC 2.41 mil/uL (4.20-5.00); RDW 14.3 % (10.5-14.5); WBC 16.3 thou/uL (4.0-11.0)
[2021-07-25 08:12] VITALS: BP 109/51
--- NOTE | 2021-07-25 09:59 | NUR ---
Assumed care of pt at 0700. Pt a&ox1. Forgetful. Dressing c/d/i. Pain controlled. Up to the chair with physical therapy this am. Good appetite. Call light within reach. Fall precautions in place. Will continue to monitor.
[2021-07-25 15:12] VITALS: BP 124/43
[2021-07-25 21:37] VITALS: BP 133/57
--- NOTE | 2021-07-26 05:13 | NUR ---
PT LYING IN BED. LORTAB PROVIDING PAIN RELIEF. INCONTINENT. RESTING COMFORTABLY. NO NEEDS VOICED. FREQUENT OBSERVATION.
[2021-07-26 07:45] VITALS: BP 153/68
--- NOTE | 2021-07-26 15:29 | NUR ---
PT ASSESSED AT START OF SHIFT. MAX ASSIST TO GET OUT OF BED. NOT ABLE TO TAKE STEPS BUT CAN STAND SOME. TRANSFERRED TO RECLINER W/ THERAPY ASST. FEEDING SELF AND EATING OK. DAUGHTERS HERE FOR VISIT FOR SEVERAL HOURS. INCISIONS HEALING. PAIN PILL W/ GOOD RELIEF.
[2021-07-26 16:13] VITALS: BP 127/52
[2021-07-26 20:14] VITALS: BP 140/45
--- NOTE | 2021-07-27 05:25 | NUR ---
PT LYING IN BED. LORTAB PROVIDING PAIN RELIEF. PURE WICK IN PLACE. RESTLESS THIS SHIFT. FREQUENT OBSERVATION.
[2021-07-27 08:24] VITALS: BP 139/68
--- NOTE | 2021-07-27 09:24 | NUR ---
RIGHT HIP NAILING-AQUACEL DRESSING D/C/I, A/O X [address], ROOM AIR, MAX ASSIST WITH TRANSFERS, INCONT B/B-PUREWICK IN PLACE, LEFT FOREARM IV SALINE LOCKED-FLUSHED WITH 10 CC NS, PATENT, AC HS ACCU CHECKS 142 @ BREAKFAST NO INSULIN REQUIRED, HAS BILATERAL BRUISES ARMS AND HANDS. PAIN LEVEL 5/10 TO RIGHT HIP NORCO GIVEN PRN. REFUSED ICE PACK FOR HIP STATES ITS TOO COLD.
[2021-07-27] MEDS ORDERED: HYDROCODON-ACE1 EAC7 PO (10:50)
--- NOTE | 2021-07-27 11:46 | NUR ---
[facility] cannot accept for post acute care. Sp with dtr Adan. Planned skilled at [facility] once stable. Faxed clinical to [facility].
[2021-07-27 16:24] VITALS: BP 124/57
[2021-07-27 19:59] VITALS: BP 123/57
--- NOTE | 2021-07-28 04:59 | NUR ---
ASSUMED PT CARE THIS PM. PT IS ALERT AND ORIENTED TO SELF. PT HAS AQUACELL DRSG TO RIGHT HIP WHICH IS D/C/I. PT C/O PAIN WHICH WAS MANANED BY [facility]. PT IS ON RA. NO VISIBLE SIGN OF DISTRESS NOTED. FALL PRECAUTIONS IN PLACE. WILL CONTINUE TO MONITOR.
[2021-07-28 08:10] VITALS: BP 99/57
[2021-07-28 08:11] VITALS: BP 99/57
[2021-07-28 09:38] LABS: HEMATOCRIT 22.5 % (37.0-47.0); HEMOGLOBIN 7.3 gm/dL (12.0-15.0); MCH 29.7 pg (26.0-34.0); MCHC 32.6 g/dL (28.0-37.0); MCV 90.9 fL (80.0-100.0); RBC 2.47 mil/uL (4.20-5.00); RDW 14.5 % (10.5-14.5); WBC 11.5 thou/uL (4.0-11.0)
[2021-07-28 09:55] LABS: ALBUMIN 2.2 g/dL (3.4-5.0); CALCIUM 9.2 mg/dL (8.5-10.1); CREATININE 0.9 mg/dL (0.6-1.0); PHOSPHORUS 3.6 mg/dL (2.6-4.7); POTASSIUM 4.9 mmol/L (3.5-5.1)
--- NOTE | 2021-07-28 11:10 | NUR ---
ASSUMED PT CARE THIS AM. PT IS ALERT & ORIENTED X1,2 AND FORGETFUL. PT HAS IV SITE ON LFA SALINE LOCKED. PT IS ACCUCHECK ACHS. PT HAS AQUACEL DRESSING ON R HIP. NO C/O OF PAIN, NAUSEA AND VOMITING THIS AM. PT ON THE BED WATCHING TV, BED ON THE LOWEST POSITION, SIDE RAILS UP, CALL LIGHT WITHIN REACH. WILL FOLLOW POC.
--- NOTE | 2021-07-28 16:55 | NUR ---
Plan dc to [facility]. Sp with 2 dtrs. Stretcher for 1600, chart copied, orders faxed and received. RN called report.
== END 2021-07-28 16:38 | DRG 480 ==
LOC: ER 22:41 → EROBS 07-23 04:42 → 4S 07-23 04:42
PROVIDERS: Emergency Medicine; Hospitalist; Nurse Practitioner Family; Orthopaedic Surgery; ADMIT Surgery; ATTEND Surgery
PROC: 0QS604Z Reposition Right Upper Femur with Internal Fixation Device, Open Approach (ICD-10-PCS; principal; 2021-07-23)
DX: S72.001A Fracture of unspecified part of neck of right femur, initial encounter for closed fracture (principal); E43 Unspecified severe protein-calorie malnutrition; D62 Acute posthemorrhagic anemia; N17.9 Acute kidney failure, unspecified; D72.829 Elevated white blood cell count, unspecified; E11.9 Type 2 diabetes mellitus without complications; Z20.822 Contact with and (suspected) exposure to COVID-19; E78.5 Hyperlipidemia, unspecified; I10 Essential (primary) hypertension; W18.39XA Other fall on same level, initial encounter; Y93.89 Activity, other specified; Y92.89 Other specified places as the place of occurrence of the external cause; Y99.8 Other external cause status; F03.90 Unspecified dementia, unspecified severity, without behavioral disturbance, psychotic disturbance, mood disturbance, and anxiety; Z88.8 Allergy status to other drugs, medicaments and biological substances
CPT/HCPCS: 10195; 50010; 50101; 50386; 51412; 51538; 52304; 56525; 57092; 59186; 59187; 59188; 59189; 59190; 62110; 62900; 70005

== ENCOUNTER 2021-08-01 22:14 | Inpatient (IN) | payer OTHER ==
[~2021-08-01] VITALS: Ht 165.1 cm; Wt 70.8 kg
--- NOTE | ~2021-08-01 | EMS ---
[facility] [address] [place] [address] EMS Patient Care Report Name: SHERIDAN LEDBETTER Room #: 219-P ADM IN M.R.#: [id number] Admission: 08/02/21 Attend Phys: Timothy Smith DO Discharge: Date of : 34 Report #: [id number] THIS REPORT FOR: //name// Report Transmitted: 08/05/2021 16:24 EMS Care Summary [place], [place]/[facility] Incident [id number] @ 08/01/2021 21:12 Incident Location [address] Patient SHERIDAN LEDBETTER Female, 85 Years 1935 Patient Address [address] [place] [address] Patient History Dementia,Hypertension (HTN),Hyperlipidemia,Type 2 Diabetes,Novel Coronavirus (COVID-19), Patient Allergies Codeine,Erythromycin, Patient Medications Lisinopril, Gabapentin, Simvastatin, Chief Complaint [place] staff worried about sepsis, lethargic, Disposition Transported No Lights/[place] Dispatch Reason Breathing Problem Transported To [facility] Narrative Called to the scene for a sick. Upon arrival, NH met us at the door and stated they were worried the pt might be becoming septic. She has a low grade fever, [facility] [address] [place] [address] EMS Patient Care Report Name: SHERIDAN LEDBETTER Room #: 219-P ADM IN Sara#: [id number] Admission: 08/02/21 Attend Phys: Timothy Smith DO Discharge: Date of : 34 Report #: [id number] a little lethargic and is hypotensive. She was moved to the EMS cot and loaded into the ambulance w/o incident. Vitals obtained. 4 Lead. 18g IV SL and D-stick. Vitals repeated. 500cc bag NS ran w/o. O2 via NC. En route: no changes. Vitals repeated. RR to the ER. Arrived: pt taken to ER #8 and moved to their bed w/o incident. Pt care & report to ER staff. Initial Vitals @22:03P: 91,SpO2: 95, @21:51P: 91,CO: 13,SpO2: 93, @22:01P: 88,CO: 9,SpO2: 99, @21:35P: 94,BP: 65/36,SpO2: 93, @21:40P: 94,BP: 65/32,GCS: 15,Glucose: 317,CO: 14,SpO2: 93, @22:03P: 89,R: 16,BP: 75/41,Pain: 0/10,GCS: 15,CO: 8,SpO2: 96,Revised Trauma: 10,WA Suspected: false @21:36P: 91,R: 18,BP: 67/34,Pain: 0/10,GCS: 15,CO: 16,SpO2: 96,Revised Trauma: 10, @21:37P: 93,R: 18,BP: 71/36,Pain: 0/10,GCS: 15,CO: 14,SpO2: 95,Revised Trauma: 10,WA Suspected: false Assessments @22:03MENTAL:Event Oriented,Person Oriented,Place Oriented,Time Oriented,SKIN:HEENT:LUNG SOUNDS:ABDOMEN:PELVIS//GI:EXTREMITIES:Left Arm: No Abnormalities,Right Arm: No Abnormalities,Left Leg: No Abnormalities,Right Leg: No Abnormalities,PULSE:Radial: 2+ Normal,NEURO:No Abnormalities, Impression Generalized Weakness Procedures @21:23 ALS Assessment Response: UnchangedSucceeded @21:27 Stretcher Response: Unchanged @21:38 IV Therapy - Saline Lock 8cc (18 ga) Site: Forearm-Right Response: UnchangedSucceeded @21:37 3-Lead ECG Response: UnchangedSucceeded @21:45 IV Therapy - Saline Lock 500cc (18 ga) Site: Forearm-Right Response: UnchangedSucceeded @21:45 Oxygen FlowRate: 4 Device: Nasal Cannula (NC) Response: ImprovedSucceeded Timeline 21:10,Call Received 21:10,Dispatch Notified 21:12,Dispatched 21:14,En Route 21:22,On Scene [address] [address] EMS Patient Care Report Name: SHERIDAN LEDBETTER Room #: 219-P ADM IN M.R.#: [id number] Admission: 08/02/21 Attend Phys: Timothy Smith DO Discharge: Date of : 34 Report #: [id number] 21:23,At Patient 21:23,ALS Assessment,Response: UnchangedSucceeded, 21:27,Stretcher,Response: Unchanged 21:35,BP: 65/36 M,PULSE: 94,RR: R,SPO2: 93 Ox,ETCO2: ,BG: ,PAIN: ,GCS: , 21:36,BP: 67/34 M,PULSE: 91,RR: 18 R,SPO2: 96 Ox,ETCO2: ,BG: ,PAIN: 0,GCS: 15, 21:37,BP: 71/36 M,PULSE: 93,RR: 18 R,SPO2: 95 Ox,ETCO2: ,BG: ,PAIN: 0,GCS: 15, 21:37,3-Lead ECG,Response: UnchangedSucceeded, 21:38,IV Therapy - Saline Lock 8cc 18 ga Site: Forearm-Right,Response: UnchangedSucceeded, 21:40,BP: 65/32 M,PULSE: 94,RR: R,SPO2: 93 Ox,ETCO2: ,B,PAIN: ,GCS: 15, 21:45,Oxygen FlowRate: 4 Device: Nasal Cannula (NC) Response: ImprovedSucceeded, 21:45,IV Therapy - Saline Lock 500cc 18 ga Site: Forearm-Right,Response: UnchangedSucceeded, 21:51,BP: / M,PULSE: 91,RR: R,SPO2: 93 Ox,ETCO2: ,BG: ,PAIN: ,GCS: , 21:57,Depart Scene 22:01,BP: / M,PULSE: 88,RR: R,SPO2: 99 Ox,ETCO2: ,BG: ,PAIN: ,GCS: , 22:03,BP: 75/41 M,PULSE: 89,RR: 16 R,SPO2: 96 Ox,ETCO2: ,BG: ,PAIN: 0,GCS: 15, 22:03,BP: / M,PULSE: 91,RR: R,SPO2: 95 Ox,ETCO2: ,BG: ,PAIN: ,GCS: , 22:06,At Destination 22:30,Call Closed Disclaimer v1.1 Copyright 2021 [employer] This EMS Care Summary contains data elements from the applicable legal record (which may be displayed differently). It is designed to provide pertinent information for the following purposes: continuity of care, clinical quality, and state data reporting. The complete legal record is available to ED staff and administrators of the receiving hospital in [facility]'s Patient Tracker. All data is provided "as is."
--- NOTE | ~2021-08-01 | EMS ---
[facility] [address] [place] [address] EMS Patient Care Report Name: SHERIDAN LEDBETTER Room #: PRE M.R.#: [id number] Admission: Attend Phys: Discharge: Date of : 34 Report #: [id number] THIS REPORT FOR: //name// Report Transmitted: 08/01/2021 22:06 EMS Care Summary [place], [place]/[facility] Incident [id number] @ 08/01/2021 21:12 Incident Location [address] Patient SHERIDAN LEDBETTER Female, 85 Years 1935 Patient Address [address] [place] [address] Patient History Dementia,Hypertension (HTN),Hyperlipidemia,Type 2 Diabetes,Novel Coronavirus (COVID-19), Patient Allergies Codeine,Erythromycin, Patient Medications Lisinopril, Gabapentin, Simvastatin, Chief Complaint [place] staff worried about sepsis, lethargic, Disposition Transported No Lights/[place] Dispatch Reason Breathing Problem Transported To [facility] Narrative Called to the scene for a sick. Upon arrival, NH met us at the door and stated they were worried the pt might be becoming septic. She has a low grade fever, [facility] [address] [place] [address] EMS Patient Care Report Name: SHERDIAN LEDBETTER Room #: PRE ER M.R.#: [id number] Admission: Attend Phys: Discharge: Date of : 34 Report #: [id number] a little lethargic and is hypotensive. She was moved to the EMS cot and loaded into the ambulance w/o incident. Vitals obtained. 4 Lead. 18g IV SL and D-stick. Vitals repeated. 500cc bag NS ran w/o. O2 via NC. En route: no changes. Vitals repeated. RR to the ER. Arrived: pt taken to ER #8 and moved to their bed w/o incident. Pt care & report to ER staff. Initial Vitals @22:03P: 91,SpO2: 95, @21:51P: 91,CO: 13,SpO2: 93, @22:01P: 88,CO: 9,SpO2: 99, @21:35P: 94,BP: 65/36,SpO2: 93, @21:40P: 94,BP: 65/32,GCS: 15,Glucose: 317,CO: 14,SpO2: 93, @22:03P: 89,R: 16,BP: 75/41,Pain: 0/10,GCS: 15,CO: 8,SpO2: 96,Revised Trauma: 10,ND Suspected: false @21:36P: 91,R: 18,BP: 67/34,Pain: 0/10,GCS: 15,CO: 16,SpO2: 96,Revised Trauma: 10, @21:37P: 93,R: 18,BP: 71/36,Pain: 0/10,GCS: 15,CO: 14,SpO2: 95,Revised Trauma: 10,ND Suspected: false Assessments @22:03MENTAL:Time Oriented,Place Oriented,Person Oriented,Event Oriented,SKIN:HEENT:LUNG SOUNDS:ABDOMEN:PELVIS//GI:EXTREMITIES:Left Arm: No Abnormalities,Right Arm: No Abnormalities,Left Leg: No Abnormalities,Right Leg: No Abnormalities,PULSE:Radial: 2+ Normal,NEURO:No Abnormalities, Impression Generalized Weakness Procedures @21:23 ALS Assessment Response: UnchangedSucceeded @21:27 Stretcher Response: Unchanged @21:38 IV Therapy - Saline Lock 8cc (18 ga) Site: Forearm-Right Response: UnchangedSucceeded @21:37 3-Lead ECG Response: UnchangedSucceeded @21:45 IV Therapy - Saline Lock 500cc (18 ga) Site: Forearm-Right Response: UnchangedSucceeded @21:45 Oxygen FlowRate: 4 Device: Nasal Cannula (NC) Response: ImprovedSucceeded Timeline 21:10,Call Received 21:10,Dispatch Notified 21:12,Dispatched 21:14,En Route 21:22,[place] [address] EMS Patient Care Report Name: SHERIDAN LEDBETTER Room #: PRE ER M.R.#: [id number] Admission: Attend Phys: Discharge: Date of : 34 Report #: [id number] 21:23,At Patient 21:23,ALS Assessment,Response: UnchangedSucceeded, 21:27,Stretcher,Response: Unchanged 21:35,BP: 65/36 M,PULSE: 94,RR: R,SPO2: 93 Ox,ETCO2: ,BG: ,PAIN: ,GCS: , 21:36,BP: 67/34 M,PULSE: 91,RR: 18 R,SPO2: 96 Ox,ETCO2: ,BG: ,PAIN: 0,GCS: 15, 21:37,BP: 71/36 M,PULSE: 93,RR: 18 R,SPO2: 95 Ox,ETCO2: ,BG: ,PAIN: 0,GCS: 15, 21:37,3-Lead ECG,Response: UnchangedSucceeded, 21:38,IV Therapy - Saline Lock 8cc 18 ga Site: Forearm-Right,Response: UnchangedSucceeded, 21:40,BP: 65/32 M,PULSE: 94,RR: R,SPO2: 93 Ox,ETCO2: ,B,PAIN: ,GCS: 15, 21:45,Oxygen FlowRate: 4 Device: Nasal Cannula (NC) Response: ImprovedSucceeded, 21:45,IV Therapy - Saline Lock 500cc 18 ga Site: Forearm-Right,Response: UnchangedSucceeded, 21:51,BP: / M,PULSE: 91,RR: R,SPO2: 93 Ox,ETCO2: ,BG: ,PAIN: ,GCS: , 21:57,Depart Scene 22:01,BP: / M,PULSE: 88,RR: R,SPO2: 99 Ox,ETCO2: ,BG: ,PAIN: ,GCS: , 22:03,BP: 75/41 M,PULSE: 89,RR: 16 R,SPO2: 96 Ox,ETCO2: ,BG: ,PAIN: 0,GCS: 15, 22:03,BP: / M,PULSE: 91,RR: R,SPO2: 95 Ox,ETCO2: ,BG: ,PAIN: ,GCS: , 22:06,At Destination 22:30,Call Closed Disclaimer v1.1 Copyright 2021 [employer] This EMS Care Summary contains data elements from the applicable legal record (which may be displayed differently). It is designed to provide pertinent information for the following purposes: continuity of care, clinical quality, and state data reporting. The complete legal record is available to ED staff and administrators of the receiving hospital in [facility]'s Patient Tracker. All data is provided "as is."
[~2021-08-01 22:14] MED LIST changes: +HYDROCODON-ACE1 EAC7 PO; +LISINOPRIL20 MG PO; +NAPROSYN500 MG PO; +VITAMIN D350 MC3 PO
[2021-08-01 22:19] VITALS: BP 98/37
--- NOTE | 2021-08-01 22:40 | NUR ---
PATIENT NOTED TO HAVE SURGIAL INCISION TO RIGHT HIP AND THIGH AYLEEN ARE INTACT TO EXPOSED WOUND NO REDNESS OR DRAINAGE IS NOTED NO EVIDENCE OF INFECTION IS NOTED MD AT BEDSIDE AND VISUALIZED SAME
[2021-08-01 22:56] LABS: HEMOGLOBIN 6.5 gm/dL (12.0-15.0); MCH 30.3 pg (26.0-34.0); RDW 15.5 % (10.5-14.5)
[2021-08-01 22:57] LABS: CALCIUM 8.2 mg/dL (8.5-10.1); CREATININE 2.1 mg/dL (0.6-1.0); MCHC 32.5 g/dL (28.0-37.0); MCV 93.3 fL (80.0-100.0); PLATELET COUNT 483 thou/uL (150-400); RBC 2.14 mil/uL (4.20-5.00); WBC 20.2 thou/uL (4.0-11.0)
[2021-08-01 23:07] LABS: ALBUMIN 1.9 g/dL (3.4-5.0); DIRECT BILIRUBIN 0.2 mg/dL (<0.1-0.2); TOTAL BILIRUBIN 0.9 mg/dL (0.2-1.0); TOTAL PROTEIN 5.2 g/dL (6.4-8.2)
[2021-08-01 23:26] LABS: ABSOLUTE NEUTROPHILS 16.4 thou/uL (1.4-8.2); ANISOCYTOSIS 1+; HYPOCHROMASIA 1+; MICROCYTES 1+; PLATELET ESTIMATE INCREASED
[2021-08-01 23:34] LABS: URINE BILIRUBIN NEGATIVE (Negative); URINE BLOOD NEGATIVE (Negative); URINE CLARITY CLEAR; URINE COLOR YELLOW; URINE GLUCOSE-RANDOM* NEGATIVE (Negative); URINE KETONES TRACE (Negative); URINE LEUKOCYTES-REFLEX NEGATIVE (Negative); URINE NITRITE-REFLEX NEGATIVE (Negative); URINE PROTEIN (DIPSTICK) NEGATIVE (Negative); URINE SPECIFIC GRAVITY 1.025 (1.005-1.035)
[2021-08-02] VITALS (68 sets, daily range): BP systolic 80–138; BP diastolic 33–76
--- NOTE | 2021-08-02 07:52 | NUR ---
0240: pt arrives to ICU via bed from CT scan. transported by this rn, so RN, and 2 ed aids. pt is a&o to self. forgetful. pt requires frequent reorientation. pt on levophed gtt for bp support. pt placed on 2L nc for o2 saturation. aferbrile 97.7. BS 158. BP 109/45. adm requirement completed as charted. pt has hx dementia/forgetful and could not ans all adm ques. pt's daughter at ed bedside prior to pt transfer to ICU. pics of pt wounds taked as documented. 0525: blood transfusion started
[2021-08-02 10:32] LABS: HEMATOCRIT 25.8 % (37.0-47.0); HEMOGLOBIN 8.3 gm/dL (12.0-15.0); MCH 30.5 pg (26.0-34.0); MCHC 32.3 g/dL (28.0-37.0); MCV 94.4 fL (80.0-100.0); PLATELET COUNT 469 thou/uL (150-400); RBC 2.74 mil/uL (4.20-5.00); RDW 17.4 % (10.5-14.5); WBC 23.3 thou/uL (4.0-11.0)
[2021-08-02 10:51] LABS: ALBUMIN 2.1 g/dL (3.4-5.0); CALCIUM 7.6 mg/dL (8.5-10.1); CREATININE 1.5 mg/dL (0.6-1.0); MAGNESIUM 1.8 mg/dL (1.8-2.4); TOTAL BILIRUBIN 1.5 mg/dL (0.2-1.0); TOTAL PROTEIN 4.7 g/dL (6.4-8.2)
[2021-08-02 10:55] LABS: POTASSIUM 3.6 mmol/L (3.5-5.1)
--- NOTE | 2021-08-02 14:58 | NUR ---
A RIGHT IJ CENTRAL LINE WAS PLACED PER HOSPITAL POLICY AFTER A BEDSIDE TIMEOUT WAS COMPLETED. THE 25CM LINE ADVANCED WITHOUT DIFFICULTY TO 7CM EXTERNAL. A STAT CHEST XRAY CONFIRMED LINE IN GOOD POSITION FOR USE
[2021-08-02 16:50] LABS: ANISOCYTOSIS 2+; METAMYELOCYTES 2 %
[2021-08-02 16:51] LABS: POLYCHROMASIA SLIGHT; TARGET CELLS FEW
[2021-08-03] VITALS (73 sets, daily range): BP systolic 92–165; BP diastolic 36–106
[2021-08-03 04:59] LABS: CALCIUM 7.9 mg/dL (8.5-10.1); CREATININE 1.1 mg/dL (0.6-1.0); POTASSIUM 4.1 mmol/L (3.5-5.1)
[2021-08-03 05:02] LABS: HEMOGLOBIN 8.1 gm/dL (12.0-15.0); MCH 29.5 pg (26.0-34.0); MCHC 32.6 g/dL (28.0-37.0); MCV 90.5 fL (80.0-100.0); RBC 2.76 mil/uL (4.20-5.00); RDW 17.5 % (10.5-14.5); WBC 20.7 thou/uL (4.0-11.0)
--- NOTE | 2021-08-03 07:39 | EKG ---
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: SUN : 1935 Requested By: Lex Aguilar Order Number: [id number] MD: Maged Veliz Measurements Intervals [place] Rate: 85 P: 48 [place]: 175 QRS: -6 QRSD: 90 T: 61 QT: 347 QTc: 413 Interpretive Statements Sinus rhythm Inferior infarct, old Compared to ECG 06/01/2021 19:29:50 No significant changes Electronically Signed On 08-03-2021 7:39:23 DIRECTOR OF CLINICAL TRIALS by Maged Veliz [email or web address] <ELECTRONICALLY SIGNED> By: Maged Veliz MD, [facility] 08/03/21 [id number] Maged Veliz MD, FACC /EPI
[2021-08-03 14:25] LABS: FOLIC ACID 8.3 ng/mL (8.6-58.9)
--- NOTE | 2021-08-03 15:33 | NUR ---
85-year-old female who came to the ED via EMS from [facility] facility for low b/p. She was recently admitted here at [facility] and discharged 4 days ago after experiencing a ground-level fall where she sustained a right femoral neck fracture and is now status post right femoral neck ORIF. Past medical history of dementia, anemia, HTN, DM type 2. In the ED she received 3 L of fluid and remained hypotensive she was started on norepinephrine. MALISSA solo and tx. Has daughter Adan # [phone] and son Jeff # [phone]. She lives at [facility] but since last dc she is in skilled rehab at [facility]. Disscused during los with the attending physician. Will cont. following as needed.
--- NOTE | 2021-08-03 15:34 | NUR ---
TALKED TO DOCTOR ABOUT DIET AFTER DOING NURSED SWALLOW EVAL SHE DID WELL. DIET WAS CHANGED.
--- NOTE | 2021-08-03 22:48 | NUR ---
1919- pt restless and hasnt slept in days, BRITTANY Briggs notified and ordered 2mg IV haldol
[2021-08-04] VITALS (31 sets, daily range): BP systolic 88–154; BP diastolic 43–85
[2021-08-04 04:31] LABS: ABSOLUTE NEUTROPHILS 14.6 thou/uL (1.4-8.2); BASOPHILS 0.3 % (0.0-2.0); EOSINOPHILS 1.1 % (0.0-3.0); HEMATOCRIT 22.2 % (37.0-47.0); HEMOGLOBIN 7.2 gm/dL (12.0-15.0); LYMPHOCYTES 9.2 % (24.0-44.0); MCH 29.6 pg (26.0-34.0); MCHC 32.6 g/dL (28.0-37.0); MCV 90.7 fL (80.0-100.0); PLATELET COUNT 449 thou/uL (150-400); POLYS 84.4 % (36.0-66.0); RBC 2.44 mil/uL (4.20-5.00); RDW 17.4 % (10.5-14.5); WBC 17.3 thou/uL (4.0-11.0)
[2021-08-04 04:39] LABS: CREATININE 0.8 mg/dL (0.6-1.0); MAGNESIUM 1.9 mg/dL (1.8-2.4); POTASSIUM 3.7 mmol/L (3.5-5.1)
--- NOTE | 2021-08-04 13:09 | NUR ---
CM faxed updates to [facility] admission. Discussed during unit rounds and los. Possible able to move out if the ICU today. CM spoke with patient son Truman via phone call. No concerns or needs voiced and agrees with discharge plan of back to [facility].
--- NOTE | 2021-08-04 13:13 | NUR ---
PT MED SURG/TELE STATUS AND STABLE IN ICU. BP HAS BEEN ADEQUATE WITHOUT NEED FOR LEVOPHED GTT. PT TOLERATING PO FLUIDS, BUT REFUSED TO EAT BREAKFAST OR LUNCH. PT IS STILL DROWSY FROM 1X DOSE OF HALDOL GIVEN ON FURNACE OPERATOR AND TENDER LAST PM. PT AWAKENS FOR CARES TO ANSWER QUESTIONS, BUT FALLS RIGHT BACK ASLEEP WHEN LEFT ALONE. RESPIRATIONS FALL TO 8 OR 9 WITH DEEP SLEEP, BUT PT DOES NOT DESATURATE WITH THIS. PT WILL DESAT 80S/90S OCCASIONALLY, BUT THIS ONLY LASTS FOR SECONDS BEFORE COMING BACK UP TO HIGH 90S. PT CONTINUES TO WEAR 2L OF 02 WITH SLEEP. PT HAS HAD 02 ON ALL DAY D/T DROWSINESS AND SLEEPINESS THROUGHOUT SHIFT. PT'S ONLY BELONGING IN ICU ROOM WAS A RING THAT WAS GIVEN TO PT'S GRANDDAUGHTER, SILVINO, PRIOR TO TX TO CCU. REPORT WAS GIVEN TO 2N RN AND PT WAS TAKEN TO ROOM 219 BY THIS RN AND SWEATBAND DRUMMER, JASMEET. RN TO CONTINUE TO MONITOR AND FOLLOW POC.
--- NOTE | 2021-08-04 16:47 | NUR ---
Received pt to room 219 from ICU. Pt on 2L NC for sleeping. Pt sleeping. Pt on iso for cdiff. SA on the monitor. Oriented to self only. High fall precautions in place.
--- NOTE | 2021-08-05 03:57 | NUR ---
RECEIVED PATIENT AT 1900H.ASSESSMENT DONE CHARTED.MEDS GIVEN PER AUG.ALL NEEDS ATTENDED.TO CONTINOUSLY MONITOR.
[2021-08-05 04:00] VITALS: BP 145/67
[2021-08-05 06:58] LABS: HEMATOCRIT 23.8 % (37.0-47.0); HEMOGLOBIN 7.7 gm/dL (12.0-15.0); MCH 29.3 pg (26.0-34.0); MCHC 32.4 g/dL (28.0-37.0); MCV 90.4 fL (80.0-100.0); RBC 2.63 mil/uL (4.20-5.00); RDW 17.2 % (10.5-14.5); WBC 13.7 thou/uL (4.0-11.0)
[2021-08-05 07:35] LABS: CALCIUM 7.9 mg/dL (8.5-10.1); CREATININE 0.7 mg/dL (0.6-1.0); MAGNESIUM 1.7 mg/dL (1.8-2.4); POTASSIUM 3.7 mmol/L (3.5-5.1)
[2021-08-05 08:10] VITALS: BP 145/66
--- NOTE | 2021-08-05 11:01 | NUR ---
WOUND CONSULT; DEEP TISSUE INJURIES IDENTIFIED TO THE SACRUM/RIGHT HEEL/LEFT ANTERIOR LOWER EXT AND THE LEFT HEEL. NO OPEN WOUNDS AT THIS POINT. RECOMMENDSATIONS; -LOW AIRLOSS PUMP. -PRAFO BOOTS BILATERALLY -RIGHT HEEL BETADINE. -LEFT ANTERIOR LOWER EXT BETADINE. -Q2H TURNING AT A MINIMUM. -BARRIER CREAM TO SACRUM, BID. DISCUSSED WITH SPENCER
[2021-08-05 11:34] VITALS: BP 142/68
--- NOTE | 2021-08-05 14:26 | NUR ---
CHART REVIEWED AND DISCUSSED WITH CARE TEAM. CM CALLED [facility] AND THEY WILL ACCEPT PT BACK FOR SNF ONCE MEDICALLY STABLE TO DC. CM FAXED CLINICAL UPDATES TO [phone]. [facility] INDICATED THEY ARE AWARE OF PTS CDIFF AND WILL NOT BE A BARRIER TO COMING BACK. PATIENT REMAINS ON 2L/NC. CM FOLLOWING FOR DC PLANNING.
[2021-08-05 16:11] VITALS: BP 128/80
--- NOTE | 2021-08-05 17:09 | NUR ---
ASSUMED CARE OF PATIENT AT 0700. PATIENT A&O TO SELF, FORGETFUL, ON RA DURING THE DAY, SR ON TELE. RIGHT IJ WITH 3 LUMANS PATENT AND DRAWS BLOOD. ns RUNNING AT 126ML/HR. ACCU CHECKS COMPLETED BUT NO INSULIN ORDERED BUT SUGARS ARE WNL. PICTURES TAKEN OF WOUNDS AND WOUND CARE COMPLETED. LOW AIR PUMP ADDED TO BED. AYLEEN TO RIGHT HIP REMAIN IN PLACE. PROFO BOOTS ON. PATIENT PROGRESSING TOWARD POC.
[2021-08-05 19:20] VITALS: BP 139/70
--- NOTE | 2021-08-05 21:25 | NUR ---
PT RESTING IN BED, TALKATIVE. LUNGS WITH WHEEZES, ABD DISTENDED, LORA TO DD, IVF INTACT. EDEMA IN HANDS AND ANKLES. L HIP DRESSING DRY AND INTACT. PRAFO BOOTS ON. BED ALARM ON.
[2021-08-06 04:31] VITALS: BP 157/79
[2021-08-06 05:16] LABS: CREATININE 0.7 mg/dL (0.6-1.0); MAGNESIUM 1.5 mg/dL (1.8-2.4); POTASSIUM 3.7 mmol/L (3.5-5.1)
[2021-08-06 05:19] LABS: HEMATOCRIT 24.2 % (37.0-47.0); HEMOGLOBIN 7.9 gm/dL (12.0-15.0); MCH 29.4 pg (26.0-34.0); MCHC 32.4 g/dL (28.0-37.0); MCV 90.7 fL (80.0-100.0); RBC 2.67 mil/uL (4.20-5.00); RDW 17.1 % (10.5-14.5); WBC 15.3 thou/uL (4.0-11.0)
[2021-08-06 07:55] VITALS: BP 148/80
[2021-08-06 11:29] VITALS: BP 113/84
--- NOTE | 2021-08-06 13:50 | NUR ---
Nutrition: Folate 8.3. REC folate supplementation
--- NOTE | 2021-08-06 15:50 | NUR ---
ASSUMED CARE OF PATIENT AT 0700. PATIENT A&O TO SELF AND CONFUSED AT TIMES. ON RA DURING THE DAY AND ON 2LNC AT HS. ACCU CHECKS COMPLETED AND INSULIN AND OTHER MEDICATIONS GIVEN PER EMAR. PATIENT REMAINS IN BED BEING TURNED Q2 HOURS WITH FEET ELEVATED OFF BED WITH PILLOWS. C-DIFF PRECAUTIONS STILL IN PLACE. PER CM PATIENT ABLE TO RETURN TO [facility] EVEN WITH C-DIFF ONCE MEDICALLY STABLE. PATIENT PROGRESSING TOWARD POC.
[2021-08-06 16:46] VITALS: BP 158/88
--- NOTE | 2021-08-06 16:54 | NUR ---
PT CONTINUES ON ORAL ABX. IT IS ANTICPATED THAT PT WILL BE GOING TO [facility] ONCE MEDICALLY STABLE. CM FOLLOWING REGARDING DC PLANNING.
[2021-08-06 19:53] VITALS: BP 163/76
[2021-08-07 04:29] LABS: CALCIUM 8.5 mg/dL (8.5-10.1); CREATININE 0.6 mg/dL (0.6-1.0); HEMATOCRIT 22.8 % (37.0-47.0); HEMOGLOBIN 7.8 gm/dL (12.0-15.0); MCH 30.5 pg (26.0-34.0); MCHC 34.2 g/dL (28.0-37.0); MCV 89.2 fL (80.0-100.0); RBC 2.55 mil/uL (4.20-5.00); WBC 15.4 thou/uL (4.0-11.0)
[2021-08-07 04:46] LABS: POTASSIUM 3.6 mmol/L (3.5-5.1)
[2021-08-07 05:30] VITALS: BP 144/62
--- NOTE | 2021-08-07 06:07 | NUR ---
Patient is alert to self and place. Patient is on continued precautions for cdiff. Patient had one BM 08/07/21. Patient has a moya that patent with a good amount of output. Patient is ACHS with no sliding scale. Patient has been turned Q2 hours as ordered. Patient has his right triple lumen IJ. All lumens are patent with good blood return. Patient will continue to be monitored.
--- NOTE | 2021-08-07 08:12 | HC ---
[facility] [place] [address] CONSULTATION Name: SHERIDAN LEDBETTER Room #: 219-P ADM IN M.R.#: [id number] Admission: 08/02/21 Attend Phys: Timothy Smith DO Discharge: Date of : 33 Report #: [id number] THIS REPORT FOR: cc: Sanjuanita Dumont MD, Ammar MD McElhinney, Christian C. MD ~ cc: Jet Mohan MD, [facility] DATE OF SERVICE: 08/02/2021 HISTORY OF PRESENT ILLNESS: The patient is an 85-year-old female who recently had a fall resulting in a right femoral neck fracture, status post ORIF. She was discharged from the hospital approximately 4 days ago, was noted to be hypotensive at her rehab facility. She has a history of dementia. She is able to answer some questions. Her daughter is in the room today, answering questions as well. She also has a history of chronic anemia as well as other medical problems. She has not been on any anticoagulation therapy. Reportedly, she was given antibiotics and fluids in the Emergency Room, continued to be hypotensive and was placed on a pressor. She is currently in the ICU. She is alert. She denies any abdominal pain. Blood pressure is now more stable at this time. Her hemoglobin on admission was 6.5. She was given 1 unit of packed cells. Hemoglobin now is 8.3. In discussing further with the patient and the family, there has been no obvious history of melena or bright red blood per rectum. Daughter is unsure when the last colonoscopy was performed, but it was probably greater than 5 years ago. There is no family history of colon cancer. The patient denies any nausea, vomiting, or abdominal pain. She denies any obvious melena or bright red blood per rectum, but admittedly does not observe her stools for the most part. She had an episode of diarrhea in the Emergency Room and order for C. diff is pending at this time. She currently denies any chest pain or shortness of breath. No fevers or chills. PAST MEDICAL HISTORY: Dementia, anemia, recent right femoral fracture, status post ORIF, history of hypertension, diabetes type 2, hyperlipidemia. REVIEW OF SYSTEMS: As per HPI. SOCIAL HISTORY: Denies any tobacco or alcohol use. FAMILY HISTORY: Negative for colon cancer. ALLERGIES: CODEINE AND ERYTHROMYCIN. MEDICATIONS:. Since admission, vancomycin, Protonix 40 mg b.i.d., Zosyn, albuterol, norepinephrine, Zofran p.r.n., Tylenol p.r.n. PHYSICAL EXAMINATION: [address] [address] CONSULTATION Name: SHERIDAN LEDBETTER Room #: 219-P [facility] IN M.R.#: [id number] Admission: 08/02/21 Attend Phys: Timothy Smith DO Discharge: Date of : 33 Report #: [id number] VITAL SIGNS: Temperature is 36.3, blood pressure 111/51, respiratory rate is 8. O2 sat is 100%, pulse is 96. GENERAL: She again is able to answer simple questions. She is in no acute distress. HEENT: Sclerae nonicteric. Oropharynx clear. NECK: Supple, without lymphadenopathy. CARDIOVASCULAR: Regular rate. CHEST: Clear to auscultation anteriorly bilaterally. ABDOMEN: Soft. She is nontender, nondistended. Normoactive bowel sounds. EXTREMITIES: No cyanosis, clubbing, or edema. LABORATORY DATA: WBC is 23.3, hemoglobin 8.3 after transfusion. Platelet count is 469. Sodium 134, potassium 3.6, chloride 105, bicarbonate 20, BUN 66, creatinine 1.5, glucose 143. Lactic acid level 1.0, calcium 7.6, magnesium 1.8, total bilirubin 1.5, AST 24, ALT 12, alkaline phosphatase 86, total protein 4.7, albumin 2.1. IMAGING: She underwent a CT scan of the abdomen and pelvis on admission, which showed mildly prominent fluid-filled loops of small bowel, diffusely seen throughout the abdomen, most suggestive of mild ileus versus an enteritis. No hydronephrosis or renal calculi were noted. Recent surgical changes of the right femoral neck were noted. Extensive degenerative changes of the spine also noted. CT scan of the chest, no acute infiltrates, pleural effusions or pneumothorax. ASSESSMENT AND PLAN: 1. Anemia. The patient presented with hypotension. There are no obvious signs of GI bleed at this time. No history of melena or bright red blood per rectum. She also has a history of chronic anemia. I would recommend Hemoccult testing of stools. 2. Her hypertension may be secondary to sepsis or other factors. She has been treated with IV antibiotics. Her white count is elevated. She does have urinary tract infection on admission and has had recent surgery. Also, consider the possibility of C. diff, which has already been ordered. She did have 1 episode of diarrhea yesterday. Agree with PPI therapy, which has already been started. We will continue to follow. Thank you for allowing me to participate in her care. <ELECTRONICALLY SIGNED> By: Beny Martínez MD 08/07/21 0812 [id number] Beny Martínez MD /nt
[2021-08-07 08:15] VITALS: BP 141/69
--- NOTE | 2021-08-07 08:39 | NUR ---
WOUND CARE F/U; I AM ENCOURAGED TODAY THAT THE PATIENTS BRUSING IS QUICKLY RESOLVING AND NOT ADVANCING. THIS MAY INDICATE THAT THE BRUISING IS NOT RELATED TO PRESSURE. I WILL KEEP FOLLOWING THIS PATIENT. THE HEELS ARE BEING OFFLOADED WITH PRAFO BOOTS. DISCUSSED WITH SPENCER.
--- NOTE | 2021-08-07 15:17 | NUR ---
CARE TEAM INDICATED THAT PT WILL BE HERE OVER WEEKEND. THEY ARE MONITORING WBCS. CM SPOKE WITH PT'S SON DEBORAH WHO WAS AT BEDSIDE. HE IS AWARE AND AGREEABLE. CM CALLED AND SPOKE WITH ADMISSIONS AT [facility]. THEY ARE AWARE AND FOLLOWING WELL.
--- NOTE | 2021-08-07 15:22 | NUR ---
Assumed care of pt this AM. Pt is oriented to person. Pt slept much of day. SR on the monitor, 2L NC when asleep, RA during the day. Pt does need help eating. Pt max assist. Wound care done as ordered. Q [address] Sharma patent & draining. Family at bedside most of day. High fall precautions in place. Frequent rounding.
[2021-08-07 15:55] VITALS: BP 129/80
[2021-08-07 20:15] VITALS: BP 139/75
--- NOTE | 2021-08-08 03:51 | NUR ---
NURSING NOTE: SHIFT SUMMARY: PT ALERT TO SELF, DOES MOVE EXTREMITIES AND FOLLOW COMMANDS. UNEVENTFUL NIGHT. CURRENTLY RESITNG WITH EYES CLOSED, RESP EVEN AND NON LABORED. ALL VS AND ASSESSMENTS CHARTED. WILL CONTINUE TO MONITOR.
[2021-08-08 04:45] VITALS: BP 147/62
[2021-08-08 08:42] VITALS: BP 150/76
--- NOTE | 2021-08-08 12:11 | NUR ---
Assumed care of pt this AM. Pt is oriented x1, self only. On RA while awake, wears 2L NC while asleep. SR on the monitor. Pt w/ multiple wounds, wound care completed. Pt with open areas on the buttocks, Q2 turns & barrier cream applied. Dr arroyo requesting pt up to chair. PT called & pt transferred to chair for lunch. Max assist. Tylenol given for pain. Sharma patent & draining. High fall precautions in place. Frequent rounding. Family at bedside most of day as today is pts bday.
[2021-08-08 12:30] LABS: HEMOGLOBIN 8.6 gm/dL (12.0-15.0); MCH 29.7 pg (26.0-34.0); MCHC 32.9 g/dL (28.0-37.0); MCV 90.3 fL (80.0-100.0); PLATELET COUNT 480 thou/uL (150-400); RBC 2.88 mil/uL (4.20-5.00); RDW 17.2 % (10.5-14.5); WBC 16.3 thou/uL (4.0-11.0)
[2021-08-08 12:38] LABS: CALCIUM 8.5 mg/dL (8.5-10.1); CREATININE 0.6 mg/dL (0.6-1.0)
[2021-08-08 13:08] LABS: ABSOLUTE NEUTROPHILS 14.2 thou/uL (1.4-8.2)
[2021-08-08 13:09] LABS: ANISOCYTOSIS 1+
[2021-08-08 15:45] VITALS: BP 130/52
[2021-08-08 20:15] VITALS: BP 154/78
--- NOTE | 2021-08-09 04:44 | NUR ---
Assumed pt care at 1900. Pt is alert, confused. No sign of distress noted in pt. Pt is stable. Assessment completed and documented. Pt is non-ambulatory. Scheduled meds administered to pt. No sign of distress through the night. Continue to monitor. No further needs at this time.
[2021-08-09 04:45] VITALS: BP 159/73
[2021-08-09 10:37] VITALS: BP 131/59
[2021-08-09 16:02] VITALS: BP 147/91
--- NOTE | 2021-08-09 18:29 | NUR ---
Assumed care of pt this AM. Pt is oriented to self only, pleasant. Pt on RA while awake, 2L NC while asleep. Pt up to chair since lunch today, offered to put pt back in bed & pt requested to stay in chair longer. Sharma patent & draining. Family at bedside most of day. High fall precautions in place. Frequent rounding. Remains in iso for cdiff.
[2021-08-09 20:00] VITALS: BP 114/51
[2021-08-10 04:00] VITALS: BP 141/59
[2021-08-10 05:42] LABS: HEMATOCRIT 22.8 % (37.0-47.0); HEMOGLOBIN 7.8 gm/dL (12.0-15.0); MCH 30.9 pg (26.0-34.0); MCHC 34.4 g/dL (28.0-37.0); MCV 89.8 fL (80.0-100.0); RBC 2.54 mil/uL (4.20-5.00); RDW 17.5 % (10.5-14.5); WBC 11.6 thou/uL (4.0-11.0)
[2021-08-10 06:02] LABS: CALCIUM 8.5 mg/dL (8.5-10.1); CREATININE 0.6 mg/dL (0.6-1.0); POTASSIUM 3.7 mmol/L (3.5-5.1)
[2021-08-10 09:02] VITALS: BP 133/52
[2021-08-10] MEDS ORDERED: VANCOMYCIN HCL125 MG PO (12:18)
[2021-08-10] MEDS ORDERED: PROTONIX40 M2 PO (12:18)
[2021-08-10 13:27] VITALS: BP 114/40
--- NOTE | 2021-08-10 14:36 | NUR ---
CHART REVIEWED AND DISCUSSED WITH CARE TEAM. PT MEDICALLY STABLE TO DC THIS DAY. CM SPOKE TO PTS SON DEBORAH AND HE IS AWARE PT TO DC THIS DAY TO [facility]. CM FAXED DC ORDERS AND SUMMARY. NIMA SPOKE TO JACKLYN WHO CONFIRMED DC ORDERS RECEIVED AND ARRANGED TRANASPORT FOR 1300 VIA STRETCHER. NO FURTHER CM INTERVENTIONS INDICATED.
== END 2021-08-10 13:46 | DRG 871 ==
LOC: ER 22:14 → ICU 08-02 01:07 → EROBS 08-02 01:07 → ICU 08-02 02:57 → 2N 08-04 13:16
PROVIDERS: Hospitalist; Internal Medicine; Student in an Organized Health Care Education/Training Program; ADMIT Pediatrics; ATTEND Pediatrics
PROC: 30233N1 Transfusion of Nonautologous Red Blood Cells into Peripheral Vein, Percutaneous Approach (ICD-10-PCS; principal; 2021-08-02)
PROC: 02HV33Z Insertion of Infusion Device into Superior Vena Cava, Percutaneous Approach (ICD-10-PCS; principal; 2021-08-02)
DX: A41.4 Sepsis due to anaerobes (principal); J96.01 Acute respiratory failure with hypoxia; E43 Unspecified severe protein-calorie malnutrition; R65.21 Severe sepsis with septic shock; N17.0 Acute kidney failure with tubular necrosis; E87.1 Hypo-osmolality and hyponatremia; N39.0 Urinary tract infection, site not specified; A04.72 Enterocolitis due to Clostridium difficile, not specified as recurrent; K92.2 Gastrointestinal hemorrhage, unspecified; J98.11 Atelectasis; F03.90 Unspecified dementia, unspecified severity, without behavioral disturbance, psychotic disturbance, mood disturbance, and anxiety; I10 Essential (primary) hypertension; Z20.822 Contact with and (suspected) exposure to COVID-19; E78.5 Hyperlipidemia, unspecified; D64.9 Anemia, unspecified; I95.9 Hypotension, unspecified; E11.65 Type 2 diabetes mellitus with hyperglycemia; D71 Functional disorders of polymorphonuclear neutrophils; Z88.6 Allergy status to analgesic agent; Z88.1 Allergy status to other antibiotic agents
CPT/HCPCS: 10078; 10081; 10203; 85076